=== PATIENT | female | born 1970 | race Caucasian/White ===

== ENCOUNTER 2018-11-23 14:19 | Emergency (ER) | payer OTHER ==
[2018-11-23] MEDS ORDERED: FAMOTIDINE 20 MG/2 ML VIAL IV ONE (17:32)
[2018-11-23] MEDS ORDERED: NA CHLORIDE 0.9% 1,000 ML ONE (17:32)
[2018-11-23] MEDS ORDERED: ONDANSETRON 4 MG/2 ML VIAL ONE (17:32)
[2018-11-23 17:37] LABS: Absolute Lymphocytes (CBC) 2.1 K/uL (0.7-4.9); Absolute Monocytes 0.5 K/uL (0.1-1.3); Absolute Neutrophil 6.2 K/uL (1.8-8.0); Basophils % 0.3 % (0-1.3); Eosinophils % 0.5 % (0-4.4); Hematocrit 38.8 % (36.0-45.0); Lymphocytes % 23.6 % (15.3-44.8); MPV 9.5 fL (7.6-11.3); RBC Red Blood Cell Count 4.21 M/uL (3.86-4.86)
[2018-11-23 17:49] LABS: ALT/SGPT 12 U/L (12-78); AST/SGOT 9 U/L (15-37); Albumin 3.2 g/dL (3.4-5.0); Alkaline Phosphatase 83 U/L (45-117); BUN Blood Urea Nitrogen 11 mg/dL (7-18); Bicarbonate 32 mmol/L (21-32); Bilirubin Direct < 0.1 mg/dL (0-0.2); Bilirubin Total 0.2 mg/dL (0.2-1.0); Glucose Level 110 mg/dL (74-106); Lipase 68 U/L (73-393); Potassium 3.9 mmol/L (3.5-5.1); Protein, Total 6.7 g/dL (6.4-8.2); Sodium Level 143 mmol/L (136-145)
[2018-11-23 18:27] LABS: Urine Amorphous Sediment 4+ /HPF (NONE SEEN); Urine Bacteria >50 /HPF (<20); Urine Culture Reflex Order REFLEXED
--- NOTE | 2018-11-23 19:11 | EDPHYS ---
Physician Documentation [facility] Name: Veda Espinoza Age: 48 yrs Sex: Female : 1970 Arrival Date: 11/23/2018 Time: 14:22 Bed 12 Private MD: ED Physician Lamonte Baer HPI: 11/23 16:20 This 48 yrs old Female presents to ER via Ambulatory with complaints of cp Vomiting. 16:20 The patient presents to the emergency department with nausea, that is mild, vomiting, cp that is intermittent. 16:20 Onset: The symptoms/episode began/occurred 4 day(s) ago. Associated signs and symptoms: cp Pertinent positives: dysuria, Pertinent negatives: abdominal pain, diarrhea, fever, GI bleeding. Severity of symptoms: in the emergency department the symptoms are unchanged despite home interventions. 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 - Social history:: Smoking status: Patient uses tobacco products, smokes one pack cigarettes per day. Patient uses street drugs, marijuana. - Ebola Screening: : Patient negative for fever greater than or equal to 101.5 degrees Fahrenheit, and additional compatible Ebola Virus Disease symptoms Patient denies exposure to infectious person Patient denies travel to an Ebola-affected area in the 21 days before illness onset No symptoms or risks identified at this time. ROS: 16:30 Constitutional: Positive for poor PO intake, Negative for body aches, chills, fever. cp 16:30 Eyes: Negative for injury, pain, redness, and discharge. cp 16:30 ENT: Negative for drainage from ear(s), ear pain, sore throat, difficulty swallowing, difficulty handling secretions. 16:30 Cardiovascular: Negative for chest pain, edema, palpitations. 16:30 Respiratory: Negative for cough, shortness of breath, wheezing. 16:30 Abdomen/GI: Positive for nausea, Negative for abdominal pain, diarrhea, constipation, active vomiting. 16:30 Back: Negative for radiated pain. 16:30 : Positive for urinary symptoms, Negative for vaginal bleeding, vaginal discharge. 16:30 Skin: Negative for cellulitis, rash. 16:30 Neuro: Negative for altered mental status, dizziness, headache, weakness. 16:30 All other systems are negative. Exam: 16:35 Constitutional: The patient appears in no acute distress, alert, awake, cp non-diaphoretic, non-toxic, well developed, well nourished. 16:35 Head/Face: Normocephalic, atraumatic. cp 16:35 Eyes: Periorbital structures: appear normal, Conjunctiva: normal, no exudate, no injection, Sclera: no appreciated abnormality, Lids and lashes: appear normal, bilaterally. 16:35 ENT: External ear(s): are unremarkable, Ear canal(s): are normal, clear, TM's: bulging, is not appreciated, bilaterally, dullness, bilaterally, erythema, is not appreciated, bilaterally, Nose: is normal, Mouth: Lips: moist, Oral mucosa: pink and intact, moist, Posterior pharynx: is normal, airway is patent, no erythema, no exudate. 16:35 Chest/axilla: Inspection: normal, Palpation: is normal, no crepitus, no tenderness. 16:35 Cardiovascular: Rate: normal, Rhythm: regular. 16:35 Respiratory: the patient does not display signs of respiratory distress, Respirations: normal, no use of accessory muscles, no retractions, no splinting, no tachypnea, labored breathing, is not present, Breath sounds: are clear throughout, no decreased breath sounds, no stridor, no wheezing. 16:35 Abdomen/GI: Inspection: abdomen appears normal, Palpation: abdomen is soft and non-tender, in all quadrants. 16:35 Back: CVA tenderness, is absent. 16:35 Skin: cellulitis, is not appreciated, no rash present. 16:35 Neuro: Orientation: to person, place \T\ time. Mentation: is normal, Motor: moves all fours, strength is normal, Sensation: is normal, Gait: is steady. Vital Signs: 14:34 BP 94 / 51; Pulse 75; Resp 20; Temp 97.6; Pulse Ox 95% on R/A; Weight 63.5 kg; Height 5 aj ft. 4 in. (162.56 cm); 14:34 Body Mass Index 24.03 (63.50 kg, 162.56 cm) aj MDM: 16:07 Patient medically screened. 19:10 Data reviewed: vital signs, nurses notes, lab test result(s), and as a result, I will cp discharge patient. 19:10 Counseling: I had a detailed discussion with the patient and/or guardian regarding: the cp historical points, exam findings, and any diagnostic results supporting the discharge/admit diagnosis, lab results, to return to the emergency department if symptoms worsen or persist or if there are any questions or concerns that arise at home. Response to treatment: the patient's symptoms have markedly improved after treatment, VSS. Nausea improved and patient observed tolerating po fluids. No vomiting observed in ED, and as a result, I will discharge patient. 11/23 16:13 Order name: Urine Microscopic Only; Complete Time: 18:31 cp 11/23 18:32 Interpretation: Normal except: UWBC 10-20; URBC 5-10; UBACT >50; SQEPI 5-10; AMORPH 4+. cp 11/23 17:00 Order name: Basic Metabolic Panel; Complete Time: 18:31 cp 11/23 17:00 Order name: CBC with Diff; Complete Time: 18:31 cp 11/23 17:00 Order name: Creatinine for Radiology; Complete Time: 18:31 cp 11/23 17:00 Order name: Hepatic Function; Complete Time: 18:31 cp 11/23 17:00 Order name: Lipase; Complete Time: 18:31 cp 11/23 16:13 Order name: XRAY Ribs LEFT; Complete Time: 19:14 cp 11/23 19:14 Interpretation: Report reviewed. cp 11/23 17:11 Order name: Magnesium; Complete Time: 18:31 cp 11/23 17:21 Order name: Urine Dipstick--Ancillary (enter results) ag 11/23 17:21 Order name: Urine --Ancillary (enter results) ag 11/23 18:33 Order name: Urine Culture EDMS 11/23 16:13 Order name: Urine Dipstick-Ancillary (obtain specimen); Complete Time: 17:27 cp 11/23 16:13 Order name: Urine Test (obtain specimen); Complete Time: 17:27 cp 11/23 16:46 Order name: PO challenge; Complete Time: 20:00 cp 11/23 17:00 Order name: IV Saline Lock; Complete Time: 17:12 cp 11/23 17:00 Order name: Labs collected and sent; Complete Time: 17:12 cp Administered Medications: 17:28 Not Given (Duplicate Order): Pepcid 20 mg PO once iw 17:28 Drug: NS 0.9% 1000 ml Route: IV; Rate: 1 bolus; Site: right antecubital; iw 17:28 Drug: Pepcid 20 mg Route: IVP; Site: right antecubital; iw 19:00 Follow up: Response: No adverse reaction iw 17: Not Given (Duplicate Order): Zofran 4 mg PO once iw 17: Drug: Zofran 4 mg Route: IVP; Site: right antecubital; iw 18:00 Follow up: Response: No adverse reaction iw 19:05 Drug: Rocephin - (cefTRIAXone) 1 grams Route: IVPB; Infused Over: 30 mins; Site: right iw antecubital; 19:10 Follow up: IV Status: Completed infusion iw Disposition: 11/23/18 19:11 Discharged to Home. Impression: Urinary tract infection, site not specified, Left lower rib pain, Nausea and vomiting. - Condition is Stable. - Discharge Instructions: Musculoskeletal Pain, Nausea and Vomiting, Adult, Urinary Tract Infection, Adult. - Prescriptions for Anaprox DS 550 mg Oral Tablet - take 1 tablet by ORAL route every 12 hours As needed; 20 tablet. Tylenol- Codeine #3 300-30 mg Oral Tablet - take 2 tablets by ORAL route every 6 hours As needed no driving while taking medication; 15 tablet. Zofran 4 mg Oral Tablet - take 1 tablet by ORAL route every 12 hours As needed; 20 tablet. Cyclobenzaprine 10 mg Oral Tablet - take 1 tablet by ORAL route every 8 hours As needed no driving while taking medication; 15 tablet. - Medication Reconciliation Form, Thank You Letter, Antibiotic Education, Prescription Opioid Use form. - Follow up: Private Physician; When: 2 - 3 days; Reason: Recheck today's complaints. - Problem is new. - Symptoms have improved. Addendum: 11/27/2018 08:00 Co-signature as Attending Physician, Lamonte Baer MD I agree with the assessment and c gil plan of care. Signatures: Dispatcher [employer] Qiana Clemons, RN Lamonte Rivera MD MD cha Williams, Irene, RN RN Lamonte Rachel PA PA cp Corrections: (The following items were deleted from the chart) 11/23 19:21 19:11 11/23/2018 19:11 Discharged to Home. Impression: Urinary tract infection, site iw not specified; Left lower rib pain; Nausea and vomiting. Condition is Stable. Forms are Medication Reconciliation Form, Thank You Letter, Antibiotic Education, Prescription Opioid Use. Follow up: Private Physician; When: 2 - 3 days; Reason: Recheck today's complaints. Problem is new. Symptoms have improved. cp
--- NOTE | 2018-11-23 19:11 | ER ---
Nurse's Notes [facility] Name: Veda Espinoza Age: 48 yrs Sex: Female : 1970 Arrival Date: 11/23/2018 Time: 14:22 Bed 12 Private MD: Diagnosis: Urinary tract infection, site not specified;Left lower rib pain;Nausea and vomiting Presentation: 11/23 14:29 Presenting complaint: Patient states: Vomiting x 4 days and burning with urination. aj Patient's pupils are pinpoint and not reactive to light, speech is slurred, appears drowsy. Transition of care: patient was not received from another setting of care. Onset of symptoms was November 20, 2018. Risk Assessment: Do you want to hurt yourself or someone else? Patient reports no desire to harm self or others. Initial Sepsis Screen: Does the patient meet any 2 criteria? No. Patient's initial sepsis screen is negative. Does the patient have a suspected source of infection? No. Patient's initial sepsis screen is negative. Care prior to arrival: None. 14:29 Method Of Arrival: Ambulatory 14:29 Acuity: OSMANY 3 Triage Assessment: 14:34 General: Appears in no apparent distress. comfortable, Behavior is calm, cooperative, aj drowsy. Pain: Denies pain. Neuro: Level of Consciousness is awake, alert, obeys commands, Oriented to person, place, time, situation, Appropriate for age. Respiratory: Airway is patent Respiratory effort is even, unlabored, Respiratory pattern is regular, symmetrical. GI: Reports nausea, vomiting. : Reports burning with urination. Derm: Skin is intact, is healthy with good turgor, Skin is pink, warm \T\ dry. normal. 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 - Social history:: Smoking status: Patient uses tobacco products, smokes one pack cigarettes per day. Patient uses street drugs, marijuana. - Ebola Screening: : Patient negative for fever greater than or equal to 101.5 degrees Fahrenheit, and additional compatible Ebola Virus Disease symptoms Patient denies exposure to infectious person Patient denies travel to an Ebola-affected area in the 21 days before illness onset No symptoms or risks identified at this time. Screenin:00 Abuse screen: Denies threats or abuse. Denies injuries from another. Nutritional iw screening: No deficits noted. Tuberculosis screening: No symptoms or risk factors identified. Fall Risk None identified. Assessment: 17:00 General: Appears in no apparent distress. Behavior is calm, cooperative. Pain: iw Complains of pain in head, chest, abdomen, right arm, left arm, right leg and left leg. Neuro: Level of Consciousness is awake, alert, obeys commands, Oriented to person, place, time, situation, Moves all extremities. Full function. Cardiovascular: Respiratory: Respiratory effort is even, unlabored, Respiratory pattern is regular. GI: Reports nausea, vomiting. GI: Abdomen is flat, non-distended. Derm: Skin is intact, is healthy with good turgor. Musculoskeletal: Capillary refill < 3 seconds. 18:00 Reassessment: Patient appears in no apparent distress at this time. Patient and/or iw family updated on plan of care and expected duration. Pain level reassessed. Patient is alert, oriented x 3, equal unlabored respirations, skin warm/dry/pink. Vital Signs: 14:34 BP 94 / 51; Pulse 75; Resp 20; Temp 97.6; Pulse Ox 95% on R/A; Weight 63.5 kg; Height 5 aj ft. 4 in. (162.56 cm); 14:34 Body Mass Index 24.03 (63.50 kg, 162.56 cm) aj ED Course: 14:22 Patient arrived in ED. rg4 14:32 Triage completed. aj 14:34 Arm band placed on left wrist. Patient placed in waiting room, Patient notified of wait aj time. 16:06 Lamonte Montenegro PA is PHCP. cp 16:06 Lamonte Baer MD is Attending Physician. cp 16:07 Clarissa Harmon, JOSAFAT is Primary Nurse. iw 17:00 Patient has correct armband on for positive identification. iw 17:10 Initial lab(s) drawn, by pa, sent to lab. Urine collected: clean catch specimen, 5 cloudy. Inserted saline lock: 22 gauge in right antecubital area, using aseptic technique. Blood collected. 17:27 Urine --Ancillary (enter results) Sent. mh5 17:27 Urine Dipstick--Ancillary (enter results) Sent. 5 17:27 Magnesium Sent. 5 17:27 Basic Metabolic Panel Sent. [facility] 17:27 CBC with Diff Sent. 5 17:27 Creatinine for Radiology Sent. 5 17:27 Hepatic Function Sent. 5 17:27 Lipase Sent. 5 17:27 Urine Microscopic Only Sent. 5 18:10 XRAY Ribs LEFT In Process Unspecified. EDMS 19:20 No provider procedures requiring assistance completed. IV discontinued, intact, iw bleeding controlled, No redness/swelling at site. Pressure dressing applied. Administered Medications: 17:28 Not Given (Duplicate Order): Pepcid 20 mg PO once iw 17:28 Drug: NS 0.9% 1000 ml Route: IV; Rate: 1 bolus; Site: right antecubital; iw 17:28 Drug: Pepcid 20 mg Route: IVP; Site: right antecubital; iw 19:00 Follow up: Response: No adverse reaction iw 17:29 Not Given (Duplicate Order): Zofran 4 mg PO once iw 17:29 Drug: Zofran 4 mg Route: IVP; Site: right antecubital; iw 18:00 Follow up: Response: No adverse reaction iw 19:05 Drug: Rocephin - (cefTRIAXone) 1 grams Route: IVPB; Infused Over: 30 mins; Site: right iw antecubital; 19:10 Follow up: IV Status: Completed infusion Outcome: 19:11 Discharge ordered by . cp 19:20 Discharged to home ambulatory, with family. iw 19:20 Condition: good 19:20 Discharge instructions given to patient, family, Instructed on discharge instructions, follow up and referral plans. medication usage, Demonstrated understanding of instructions, follow-up care, medications, Prescriptions given X 4. 19:21 Patient left the ED. iw Addendum: 11/27/2018 09:52 Addendum: Culture Results: Positive urine culture. Patient was not prescribed a a5 antibiotics at discharge. Report given to SRIKANTH for further evaluation and then to public welfare director for follow up with patient. Phone call Attempt #[phone]. Left a voice mail. Signatures: Dispatcher [employer] Qiana Clemons RN RN aj Williams, Irene, RN RN Radha Mcgraw RN RN aa5 Lamonte Montenegro PA PA cp Garcia, Rubi rg4 Cindy Riddle 5 Corrections: (The following items were deleted from the chart) 09:53 09:52 Addendum: Culture Results: Positive urine culture. Patient was not prescribed aa5 antibiotics at discharge. Report given to SRIKANTH for further evaluation and then to public welfare director for follow up with patient. Phone call Attempt #[phone]
--- NOTE | 2018-11-23 19:12 | RAD REPORT ---
EXAM DESCRIPTION: RAD - Ribs Left - 11/23/2018 6:16 pm CLINICAL HISTORY: Left rib pain FINDINGS: No acute fracture is seen
[2018-11-23] MEDS ORDERED: CEFTRIAXONE/SWI 1gm 1 GM/10 ML SYR ONE (19:17)
[2018-11-23 20:08] LABS: Urine Blood TRACE (NEG); Urine Glucose NEGATIVE (NEG); Urine Protein 2+ (NEG); Urine Specific Gravity 1.015 (1.005-1.030); Urine pH 8.5 (5.0-7.0)
== END 2018-11-23 19:21 | disposition home or self-care (01) ==
LOC: ER 14:19
DX: N39.0 Urinary tract infection, site not specified (principal); R07.81 Pleurodynia; F17.210 Nicotine dependence, cigarettes, uncomplicated; F31.9 Bipolar disorder, unspecified; F90.9 Attention-deficit hyperactivity disorder, unspecified type; Z88.1 Allergy status to other antibiotic agents; Z88.8 Allergy status to other drugs, medicaments and biological substances
CPT/HCPCS: 36415; 71100; 80048; 80076; 81025; 83690; 83735; 85025; 87077; 87086; 87088; 87186; 96374; 96375; 99284; J0696; J2405; J7030; 81003; 81015

== ENCOUNTER 2019-01-10 22:34 | Emergency (ER) | payer OTHER ==
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
--- NOTE | 2019-01-10 23:45 | ER ---
Nurse's Notes [facility] Name: Veda Espinoza Age: 48 yrs Sex: Female : 1970 Arrival Date: 01/10/2019 Time: 22:35 Bed 20 Private MD: Magdy Hernandez Diagnosis: Contusion of right hand Presentation: 01/10 22:36 Presenting complaint: Patient states: I punched a wall and I think I broke my hand. ed1 Transition of care: patient was not received from another setting of care. Onset of symptoms was January 10, 2019. Risk Assessment: Do you want to hurt yourself or someone else? Patient reports no desire to harm self or others. Initial Sepsis Screen: Does the patient meet any 2 criteria? No. Patient's initial sepsis screen is negative. Does the patient have a suspected source of infection? No. Patient's initial sepsis screen is negative. Care prior to arrival: None. 22:36 Method Of Arrival: Ambulatory ed1 22:36 Acuity: OSMANY 3 ed1 Triage Assessment: 22:39 General: Appears uncomfortable, Behavior is calm, cooperative. Pain: Complains of pain ed1 in right hand Pain currently is 9 out of 10 on a pain scale. Musculoskeletal: Circulation, motion, and sensation intact. Injury Description: pt punched wall. 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 - Social history:: Smoking status: Patient uses tobacco products, smokes one pack cigarettes per day. - Ebola Screening: : Patient negative for fever greater than or equal to 101.5 degrees Fahrenheit, and additional compatible Ebola Virus Disease symptoms Patient denies exposure to infectious person Patient denies travel to an Ebola-affected area in the 21 days before illness onset No symptoms or risks identified at this time. Screenin:45 Abuse screen: Denies threats or abuse. Nutritional screening: No deficits noted. jb4 Tuberculosis screening: No symptoms or risk factors identified. Fall Risk None identified. Assessment: 22:45 General: Appears in no apparent distress. uncomfortable, Behavior is calm, cooperative, jb4 appropriate for age. Pain: Complains of pain in dorsal aspect of proximal phalanx of right little finger Pain does not radiate. Pain currently is 9 out of 10 on a pain scale. Quality of pain is described as throbbing, Pain began 30 min ago. Is continuous. Neuro: Level of Consciousness is awake, alert, obeys commands, Oriented to person, place, time, situation. Cardiovascular: Patient's skin is warm and dry. Respiratory: Airway is patent Respiratory effort is even, unlabored, Respiratory pattern is regular, symmetrical. GI: No signs and/or symptoms were reported involving the gastrointestinal system. : No signs and/or symptoms were reported regarding the genitourinary system. EENT: No signs and/or symptoms were reported regarding the EENT system. Derm: Skin is intact, Skin is pink, warm \T\ dry. Musculoskeletal: Circulation, motion, and sensation intact. Swelling present in dorsal aspect of middle phalanx of right little finger and dorsal aspect of proximal phalanx of right little finger. 01/11 00:00 Reassessment: Patient appears in no apparent distress at this time. Patient and/or jb4 family updated on plan of care and expected duration. Pain level reassessed. Patient is alert, oriented x 3, equal unlabored respirations, skin warm/dry/pink. Vital Signs: 02 22:39 BP 154 / 106; Pulse 93; Resp 20; Temp 99(O); Pulse Ox 98% ; Weight 58.97 kg; Height 5 ed1 ft. 4 in. (162.56 cm); Pain 9/10; 23:45 BP 102 / 59; Pulse 74; Resp 16; Pulse Ox 98% on R/A; jb4 22:39 Body Mass Index 22.31 (58.97 kg, 162.56 cm) ed1 ED Course: 22:35 Patient arrived in ED. as 22:35 Magdy Hernandez DO is Private Physician. as 22:37 Triage completed. ed1 22:39 Arm band placed on left wrist. ed1 22:42 Binh Kim MD is Attending Physician. gs 22:45 Patient has correct armband on for positive identification. Bed in low position. Call jb4 light in reach. Side rails up X 1. Pulse ox on. NIBP on. 22:50 Chris Jarvis RN is Primary Nurse. jb4 22:52 X-ray completed. Portable x-ray completed in exam room. Patient tolerated procedure ag1 well. 23:45 No provider procedures requiring assistance completed. Patient did not have IV access jb4 during this emergency room visit. 01/11 02:46 Hand Right 3 View XRAY In Process Unspecified. EDMS Administered Medications: 00:03 Drug: Ibuprofen 600 mg Route: PO; jb4 00:05 Follow up: Response: No adverse reaction jb4 Outcome: 01/10 23:44 Discharge ordered by . 01/11 00:06 Discharged to home ambulatory, with significant other. jb4 Condition: stable Discharge instructions given to patient, significant other, Instructed on discharge instructions, follow up and referral plans. medication usage, Demonstrated understanding of instructions, follow-up care, medications, Prescriptions given X 1. 00:06 Patient left the ED. jb4 Signatures: Dispatcher [employer] EDMS Tatiana Riddle Erika, RN RN ed1 Martha Dorsey ag1 Chris Jarvis RN RN jb4 Binh Kim MD MD Corrections: (The following items were deleted from the chart) 01/10 23:12 22:30 General: Appears in no apparent distress. uncomfortable, Behavior is calm, jb4 cooperative, appropriate for age, jb4 23:12 22:30 Pain: Complains of pain in dorsal aspect of proximal phalanx of right little jb4 finger Pain does not radiate. Pain currently is 9 out of 10 on a pain scale. Quality of pain is described as throbbing, Pain began 30 min ago. Is continuous, jb4 23:12 22:30 Neuro: Level of Consciousness is awake, alert, obeys commands, Oriented to jb4 person, place, time, situation, jb4 23:12 22:30 Cardiovascular: Patient's skin is warm and dry. jb4 jb4 23:12 22:30 Respiratory: Airway is patent Respiratory effort is even, unlabored, Respiratory jb4 pattern is regular, symmetrical, jb4 :11 09:30 GI: No signs and/or symptoms were reported involving the gastrointestinal system. jb4 jb4 : : No signs and/or symptoms were reported regarding the genitourinary system. [id number] :11 09:30 EENT: No signs and/or symptoms were reported regarding the EENT system. jb4 jb4 :30 Derm: Skin is intact, Skin is pink, warm \T\ dry. jb4 jb4 :30 Musculoskeletal: Circulation, motion, and sensation intact. Swelling present in jb4 dorsal aspect of middle phalanx of right little finger and dorsal aspect of proximal phalanx of right little finger jb4
[2019-01-11] MEDS ORDERED: IBUPROFEN 200 MG TAB PO ONE (00:10)
--- NOTE | 2019-01-11 10:53 | RAD REPORT ---
EXAM DESCRIPTION: RAD - Hand Right 3 View - 01/10/2019 10:59 pm CLINICAL HISTORY: PAIN Trauma, pain COMPARISON: No comparisons FINDINGS: No acute fracture or dislocation is seen.
== END 2019-01-11 00:06 | disposition home or self-care (01) ==
LOC: ER 22:34
DX: S60.221A Contusion of right hand, initial encounter (principal); W50.0XXA Accidental hit or strike by another person, initial encounter; F90.9 Attention-deficit hyperactivity disorder, unspecified type; F31.9 Bipolar disorder, unspecified; Z88.5 Allergy status to narcotic agent; Z88.0 Allergy status to penicillin
CPT/HCPCS: 99284

== ENCOUNTER 2019-01-17 11:28 | Emergency (ER) | payer MEDICARE, OTHER ==
[2019-01-17] MEDS ORDERED: ONDANSETRON 4 MG (ODT) TAB ONE (12:00)
[2019-01-17] MEDS ORDERED: KETOROLAC 30 MG/ML INJ ONE (12:00)
[2019-01-17] MEDS ORDERED: HYDROCODONE/APAP 10/325 TAB ONE (12:48)
--- NOTE | 2019-01-17 13:34 | ER ---
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 Transition of care: patient was not received from another setting of care. Onset of symptoms was January 17, 2019. Risk Assessment: Do you want to hurt yourself or someone else? Patient reports no desire to harm self or others. Initial Sepsis Screen: Does the patient meet any 2 criteria? No. Patient's initial sepsis screen is negative. Does the patient have a suspected source of infection? No. Patient's initial sepsis screen is negative. Care prior to arrival: None. 11:34 Method Of Arrival: Ambulatory 11:34 Acuity: OSMANY 4 Triage Assessment: 11:36 General: Appears in no apparent distress. uncomfortable, Behavior is calm, cooperative, hj appropriate for age. Pain: Complains of pain in back. 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 - Social history:: Smoking status: Patient uses tobacco products, Patient/guardian denies using alcohol. - Ebola Screening: : Patient negative for fever greater than or equal to 101.5 degrees Fahrenheit, and additional compatible Ebola Virus Disease symptoms Patient denies exposure to infectious person Patient denies travel to an Ebola-affected area in the 21 days before illness onset. Screenin:36 Abuse screen: Denies threats or abuse. Denies injuries from another. Nutritional hj screening: No deficits noted. Tuberculosis screening: No symptoms or risk factors identified. Fall Risk None identified. Assessment: 11:50 General: Appears in no apparent distress. uncomfortable, Behavior is calm, cooperative. em Pain: Complains of pain in thoracic area Pain currently is 9 out of 10 on a pain scale. Quality of pain is described as sharp, Pain began 2-3 days ago. Neuro: Level of Consciousness is awake, alert, obeys commands, Oriented to person, place, time, situation, Moves all extremities. Gait is steady, Speech is normal, Intact. Cardiovascular: Capillary refill < 3 seconds Patient's skin is warm and dry. Respiratory: Airway is patent Respiratory effort is even, unlabored, Respiratory pattern is regular, symmetrical. GI: Abdomen is flat, Reports nausea, Patient currently denies vomiting. : No signs and/or symptoms were reported regarding the genitourinary system. Derm: Skin is intact, is healthy with good turgor, Skin is pink, warm \T\ dry. Musculoskeletal: Capillary refill < 3 seconds, Range of motion: intact in all extremities. 12:20 Reassessment: Patient appears in no apparent distress at this time. reports pain em medication has not helped, provider notified, new medication orders received. 13:30 Reassessment: Patient appears in no apparent distress at this time. Patient and/or em family updated on plan of care and expected duration. Pain level reassessed. Patient is alert, oriented x 3, equal unlabored respirations, skin warm/dry/pink. reports pain is 4/10 Patient states feeling better. Vital Signs: 11:37 BP 100 / 53; Pulse 62; Resp 18; Temp 97.47(O); Pulse Ox 99% on R/A; Weight 63.5 kg; hj Height 5 ft. 4 in. (162.56 cm); Pain 10/10; 11:50 BP 102 / 50; Pulse 86; Resp 18; Pulse Ox 98% on R/A; Pain 9/10; em 13:30 BP 107 / 55; Pulse 75; Resp 18; Pulse Ox 99% on R/A; em 11:37 Body Mass Index 24.03 (63.50 kg, 162.56 cm) ED Course: 11:31 Patient arrived in ED. mr 11:32 None, None is Private Physician. mr 11:35 Triage completed. hj 11:35 Simone Jon MD is Attending Physician. kdr 11:36 Arm band placed on right wrist. hj 11:39 Patient has correct armband on for positive identification. Bed in low position. Call hj light in reach. Side rails up X 1. 11:54 Octavio Lugo LVN is Primary Nurse. em 14:01 No provider procedures requiring assistance completed. Patient did not have IV access em during this emergency room visit. Administered Medications: 11:54 Drug: Zofran 4 mg Route: PO; em 12:42 Follow up: Response: No adverse reaction; Nausea is decreased em 11:54 Drug: TORadol 60 mg Route: IM; Site: left gluteus; em 12:41 Follow up: Response: No adverse reaction; Pain is unchanged, physician notified em 12:42 Drug: [place] 10 mg-325 mg 1 tabs Route: PO; em 13:30 Follow up: Response: No adverse reaction; Pain is decreased em Outcome: 13:33 Discharge ordered by . kdr 14:01 Discharged to home ambulatory, with family. em 14:01 Condition: good 14:01 Discharge instructions given to patient, family, Instructed on discharge instructions, follow up and referral plans. no drinking with medication, no driving heavy equipment, medication usage, Demonstrated understanding of instructions, follow-up care, medications, Prescriptions given X 3. 14:02 Patient left the ED. em Signatures: Simone Jon MD MD kdr Nohelia Henson mr Octavio Lugo LVN LVN em Raciel Sawyer, RN RN
--- NOTE | 2019-01-17 13:34 | EDPHYS ---
Physician Documentation [facility] Name: Veda Espinoza Age: 48 yrs Sex: Female : 1970 Arrival Date: 01/17/2019 Time: 11:31 Bed 16 Private MD: None, None ED Physician Simone Jon HPI: 01/17 13:40 This 48 yrs old Female presents to ER via Ambulatory with complaints of Back kdr Pain. 13:40 The patient presents with pain that is acute, with no known mechanism of injury, that kdr is chronic, with no known mechanism of injury. The symptoms are located in the thoracic area. Onset: The symptoms/episode began/occurred gradually, 3 day(s) ago. The pain does not radiate. Associated signs and symptoms: The patient has no apparent associated signs or symptoms. The problem was sustained without known cause, from unknown cause. Modifying factors: The patient symptoms are alleviated by remaining still, the patient symptoms are aggravated by any movement. Severity of symptoms: At their worst the symptoms were moderate, in the emergency department the symptoms are unchanged. The patient has experienced similar episodes in the past, multiple times, chronically, but today's symptoms are worse, more painful. The patient has not recently seen a physician. 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 - Social history:: Smoking status: Patient uses tobacco products, Patient/guardian denies using alcohol. - Ebola Screening: : Patient negative for fever greater than or equal to 101.5 degrees Fahrenheit, and additional compatible Ebola Virus Disease symptoms Patient denies exposure to infectious person Patient denies travel to an Ebola-affected area in the 21 days before illness onset. ROS: 13:40 Constitutional: Negative for fever, chills, and weight loss, Eyes: Negative for injury, kdr pain, redness, and discharge, ENT: Negative for injury, pain, and discharge, Neck: Negative for injury, pain, and swelling, Cardiovascular: Negative for chest pain, palpitations, and edema, Respiratory: Negative for shortness of breath, cough, wheezing, and pleuritic chest pain, Abdomen/GI: Negative for abdominal pain, nausea, vomiting, diarrhea, and constipation, : Negative for injury, bleeding, discharge, and swelling, MS/Extremity: Negative for injury and deformity, Skin: Negative for injury, rash, and discoloration, Neuro: Negative for headache, weakness, numbness, tingling, and seizure activity. Psych: Negative for depression, anxiety, suicide ideation, homicidal ideation, and hallucinations, Allergy/Immunology: Negative for hives, rash, and allergies, Endocrine: Negative for neck swelling, polydipsia, polyuria, polyphagia, and marked weight changes, Hematologic/Lymphatic: Negative for swollen nodes, abnormal bleeding, and unusual bruising. 13:40 Back: Positive for pain with movement, Negative for injury or acute deformity, decreased range of motion, pain at rest, radiated pain, acute changes. Exam: 13:40 Constitutional: This is a well developed, well nourished patient who is awake, alert, kdr and in no acute distress. Head/Face: Normocephalic, atraumatic. Eyes: Pupils equal round and reactive to light, extra-ocular motions intact. Lids and lashes normal. Conjunctiva and sclera are non-icteric and not injected. Cornea within normal limits. Periorbital areas with no swelling, redness, or edema. Neck: Trachea midline, no thyromegaly or masses palpated, and no cervical lymphadenopathy. Supple, full range of motion without nuchal rigidity, or vertebral point tenderness. No Meningismus. Chest/axilla: Normal chest wall appearance and motion. Nontender with no deformity. No lesions are appreciated. Cardiovascular: Regular rate and rhythm with a normal S1 and S2. No gallops, murmurs, or rubs. Normal PMI, no JVD. No pulse deficits. Respiratory: Lungs have equal breath sounds bilaterally, clear to auscultation and percussion. No rales, rhonchi or wheezes noted. No increased work of breathing, no retractions or nasal flaring. Abdomen/GI: Soft, non-tender, with normal bowel sounds. No distension or tympany. No guarding or rebound. No evidence of tenderness throughout. Skin: Warm, dry with normal turgor. Normal color with no rashes, no lesions, and no evidence of cellulitis. MS/ Extremity: Pulses equal, no cyanosis. Neurovascular intact. Full, normal range of motion. Neuro: Awake and alert, GCS 15, oriented to person, place, time, and situation. Cranial nerves II-XII grossly intact. Motor strength 5/5 in all extremities. Sensory grossly intact. Cerebellar exam normal. Normal gait. Psych: Awake, alert, with orientation to person, place and time. Behavior, mood, and affect are within normal limits. 13:40 Back: pain, that is mild, that is moderate, of the thoracic area, ROM is painful, normal spinal alignment noted, CVA tenderness, is absent, vertebral tenderness, is appreciated at T1, T2, T3, T4, T5, T6, T7 and T8. Vital Signs: 11:37 BP 100 / 53; Pulse 62; Resp 18; Temp 97.47(O); Pulse Ox 99% on R/A; Weight 63.5 kg; hj Height 5 ft. 4 in. (162.56 cm); Pain 10/10; 11:50 BP 102 / 50; Pulse 86; Resp 18; Pulse Ox 98% on R/A; Pain 9/10; em 13:30 BP 107 / 55; Pulse 75; Resp 18; Pulse Ox 99% on R/A; em 11:37 Body Mass Index 24.03 (63.50 kg, 162.56 cm) hj MDM: 13:33 Patient medically screened. kdr 13:40 Data reviewed: vital signs, nurses notes, lab test result(s). Counseling: I had a kdr detailed discussion with the patient and/or guardian regarding: the historical points, exam findings, and any diagnostic results supporting the discharge/admit diagnosis, the need for outpatient follow up. Administered Medications: 11:54 Drug: Zofran 4 mg Route: PO; em 12:42 Follow up: Response: No adverse reaction; Nausea is decreased em 11:54 Drug: TORadol 60 mg Route: IM; Site: left gluteus; em 12:41 Follow up: Response: No adverse reaction; Pain is unchanged, physician notified em 12:42 Drug: [place] 10 mg-325 mg 1 tabs Route: PO; em 13:30 Follow up: Response: No adverse reaction; Pain is decreased em Disposition: 01/17/19 13:33 Discharged to Home. Impression: Upper back pain - acute exacerbation of chronic. - Condition is Stable. - Discharge Instructions: Chronic Back Pain, Back Pain, Adult, [id number]. - Prescriptions for Tylenol- Codeine #3 300-30 mg Oral Tablet - take 2 tablets by ORAL route every 6 hours As needed; 12 tablet. Cyclobenzaprine 10 mg Oral Tablet - take 1 tablet by ORAL route every 8 hours As needed; 16 tablet. Medrol (Magdiel) 4 mg Oral Tablets, Dose Pack - take 1 tablet by ORAL route as directed - follow package instructions; 1 packet. - Medication Reconciliation Form, Thank You Letter, Prescription Opioid Use form. - Follow up: Private Physician; When: 2 - 3 days; Reason: If symptoms return, Further diagnostic work-up, Recheck today's complaints, Continuance of care, Re-evaluation by your physician. - Problem is an acute exacerbation. - Symptoms have improved. Signatures: Simone Jon MD MD [facility] Octavio Lugo, LIME HIDE INSPECTOR LIME HIDE INSPECTOR em Raciel Sawyer RN RN hj Corrections: (The following items were deleted from the chart) 14:02 13:33 01/17/2019 13:33 Discharged to Home. Impression: Upper back pain - acute em exacerbation of chronic. Condition is Stable. Forms are Medication Reconciliation Form, Thank You Letter, Antibiotic Education, Prescription Opioid Use. Follow up: Private Physician; When: 2 - 3 days; Reason: If symptoms return, Further diagnostic work-up, Recheck today's complaints, Continuance of care, Re-evaluation by your physician. Problem is an acute exacerbation. Symptoms have improved. kdr
== END 2019-01-17 14:02 | disposition home or self-care (01) ==
LOC: ER 11:28
DX: G89.29 Other chronic pain (principal); F31.9 Bipolar disorder, unspecified; F90.9 Attention-deficit hyperactivity disorder, unspecified type; Z72.0 Tobacco use; Z88.1 Allergy status to other antibiotic agents; Z88.8 Allergy status to other drugs, medicaments and biological substances
CPT/HCPCS: 96372; 99283

== ENCOUNTER 2019-01-22 20:00 | Emergency (ER) | payer MEDICARE ==
[2019-01-22] MEDS ORDERED: KETOROLAC 30 MG/ML INJ ONE (22:38)
[2019-01-22] MEDS ORDERED: DEXAMETHASONE 4 MG/ML VIAL ONE (22:38)
--- NOTE | 2019-01-22 23:08 | ER ---
Nurse's Notes [facility] Name: Veda Espinoza Age: 48 yrs Sex: Female : 1970 Arrival Date: 01/22/2019 Time: 20:02 Bed 6 Private MD: Diagnosis: right rib pain Presentation: 01/22 20:28 Presenting complaint: Patient states: right upper rib cage pain for 2 months, getting tl2 worse. Hurts to breathe or cough. Denies any congestion or chronic coughing, no fever. Has been taking ibuprofen for inflammation but is not helping. Transition of care: patient was not received from another setting of care. Onset of symptoms was November 2018. Risk Assessment: Do you want to hurt yourself or someone else? Patient reports no desire to harm self or others. Initial Sepsis Screen: Does the patient meet any 2 criteria? No. Patient's initial sepsis screen is negative. Does the patient have a suspected source of infection? No. Patient's initial sepsis screen is negative. Care prior to arrival: None. 20:28 Method Of Arrival: Ambulatory tl2 20:28 Acuity: OSMANY 4 tl2 Triage Assessment: 20:31 General: Appears in no apparent distress. uncomfortable, Behavior is calm, cooperative, tl2 appropriate for age. Pain: Complains of pain in right lateral anterior chest Pain radiates to right subscapular area Pain currently is 9 out of 10 on a pain scale. Pain: Aggravated by increased activity, deep breathing. Neuro: Level of Consciousness is awake, alert, obeys commands, Oriented to person, place, time, situation. Cardiovascular: Denies chest pain. Respiratory: Reports pain with respiration Airway is patent Respiratory effort is even, unlabored, Respiratory pattern is regular, symmetrical, Breath sounds are clear bilaterally. Denies cough, shortness of breath. GI: No signs and/or symptoms were reported involving the gastrointestinal system. : No signs and/or symptoms were reported regarding the genitourinary system. Derm: Skin is pink, warm \T\ dry. 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 - Social history:: Smoking status: Patient uses tobacco products, smokes one-half pack cigarettes per day. - Ebola Screening: : No symptoms or risks identified at this time. Screenin:34 Abuse screen: Denies threats or abuse. Nutritional screening: No deficits noted. tl2 Tuberculosis screening: No symptoms or risk factors identified. Fall Risk None identified. Assessment: 20:31 General: see triage assessment. tl2 21:48 Reassessment: Patient appears in no apparent distress at this time. Patient and/or tl2 family updated on plan of care and expected duration. Pain level reassessed. Patient is alert, oriented x 3, equal unlabored respirations, skin warm/dry/pink. awaiting MD assessment. 21:48 GI: tl2 22:15 Reassessment: Patient appears in no apparent distress at this time. No changes from rr5 previously documented assessment. Patient is alert, oriented x 3, equal unlabored respirations, skin warm/dry/pink. 23:21 Reassessment: Patient appears in no apparent distress at this time. Patient is alert, rr5 oriented x 3, equal unlabored respirations, skin warm/dry/pink. discharged instruction given and explained without complaints made. Patient states symptoms have improved. Vital Signs: 20:31 BP 110 / 45; Pulse 83; Resp 18; Temp 98.1(O); Pulse Ox 98% on R/A; Weight 63.5 kg; tl2 Height 5 ft. 4 in. (162.56 cm); Pain 9/10; 21:30 BP 94 / 48; Pulse 73; Resp 19; Pulse Ox 100% ; rr5 22:30 BP 115 / 61; Pulse 70; Resp 18; Pulse Ox 100% ; rr5 23:20 BP 125 / 60; Pulse 80; Resp 16; Pulse Ox 99% ; rr5 20:31 Body Mass Index 24.03 (63.50 kg, 162.56 cm) tl2 ED Course: 20:02 Patient arrived in ED. ag3 20:29 Triage completed. tl2 20:31 Arm band placed on right wrist. tl2 20:34 Patient has correct armband on for positive identification. Placed in gown. Bed in low tl2 position. Call light in reach. Side rails up X 1. 21:40 Noam Mayo MD is Attending Physician. ps1 21:46 Felipa Graham, RN is Primary Nurse. tl2 22:24 Chest Pa And Lat (2 Views) XRAY In Process Unspecified. EDMS 23:22 No provider procedures requiring assistance completed. Patient did not have IV access rr5 during this emergency room visit. Administered Medications: 22:45 Drug: TORadol 30 mg Route: IM; Site: left gluteus; tl2 23:20 Follow up: Response: No adverse reaction rr5 22:45 Drug: Decadron - Dexamethasone 10 mg {Note: given PO in juice.} Route: IVP; Site: Other;tl2 23:20 Follow up: Response: No adverse reaction rr5 Outcome: 23:08 Discharge ordered by MD. ps1 23:22 Discharged to home ambulatory, with family. rr5 23:22 Condition: stable 23:22 Discharge instructions given to patient, Instructed on discharge instructions, follow up and referral plans. medication usage, Demonstrated understanding of instructions, follow-up care, medications, Prescriptions given X 1. 23:24 Patient left the ED. rr5 Signatures: Dispatcher [employer] EDMS Felipa Graham, RN RN tl2 Noam Mayo MD MD ps1 Mercedes Brewer Raymond RN RN rr5 Corrections: (The following items were deleted from the chart) 21:46 20:31 Respiratory: Reports pain with respiration Airway is patent Respiratory effort is tl2 even, unlabored, Respiratory pattern is regular, symmetrical, Denies cough, shortness of breath tl2 21:47 21:47 General: see triage assessment. tl2 tl2
--- NOTE | 2019-01-22 23:09 | EDPHYS ---
Physician Documentation [facility] Name: Veda Espinoza Age: 48 yrs Sex: Female : 1970 Arrival Date: 01/22/2019 Time: 20:02 Bed 6 Private MD: ED Physician Noam Mayo HPI: 01/22 22:48 This 48 yrs old Female presents to ER via Ambulatory with complaints of right ps1 rib pain. 22:48 Patient is presenting with atraumatic right rib pain that has been going on for months. ps1 She moved from [place] and has not sought medical attention for this since then. States that it hurts worse with coughing and she is a smoker. Seen on the first for chronic back pain. She is post surgical for back, this is a chronic condition. She was rx'd T3 for the pain in which she did not attest to during history. States that she has been taking 1200 mg of Motrin every 4 hours which she attested to knowing this was too much and I agreed with the patient. . [employer]: 20:31 LMP N/A - Hysterectomy tl2 Historical: - Allergies: 20:31 Augmentin; tl2 20:31 Fentanyl; tl2 - Home Meds: 20:31 Adderall XR Oral [Active]; diazepam Oral [Active]; imotrigine [Active]; Risperdal Oral tl2 [Active]; venlafaxine Oral [Active]; - PMHx: 20:31 ADD/ADHD; Bipolar disorder; Degenerative disc disease; tl2 - PSHx: 20:31 Hysterectomy; Appendectomy; Tonsillectomy; tl2 - Immunization history:: Adult Immunizations up to date. - Social history:: Smoking status: Patient uses tobacco products, smokes one-half pack cigarettes per day. - Ebola Screening: : No symptoms or risks identified at this time. ROS: 22:50 Constitutional: Negative for fever, chills, and weight loss, Eyes: Negative for injury, ps1 pain, redness, and discharge, Cardiovascular: Negative for chest pain, palpitations, and edema, Abdomen/GI: Negative for abdominal pain, nausea, vomiting, diarrhea, and constipation, Back: Negative for injury and pain, Skin: Negative for injury, rash, and discoloration, Neuro: Negative for headache, weakness, numbness, tingling, and seizure. 22:50 Respiratory: Positive for cough. 22:50 MS/extremity: Positive for pain, of the right lateral anterior chest. Exam: 22:55 Constitutional: This is a well developed, well nourished patient who is awake, alert, ps1 and in no acute distress. Head/Face: Normocephalic, atraumatic. Cardiovascular: Regular rate and rhythm. No gallops, murmurs, or rubs. Normal PMI, no JVD. No pulse deficits. Respiratory: Lungs have equal breath sounds bilaterally, clear to auscultation and percussion. No rales, rhonchi or wheezes noted. No increased work of breathing, no retractions or nasal flaring. Abdomen/GI: Soft, non-tender, with normal bowel sounds. No distension or tympany. No guarding or rebound. No evidence of tenderness throughout. Skin: Warm, dry with normal turgor. Normal color with no rashes, no lesions, and no evidence of cellulitis. MS/ Extremity: Pulses equal, no cyanosis. Neurovascular intact. Full, normal range of motion. Neuro: Awake and alert, GCS 15, oriented to person, place, time, and situation. Cranial nerves II-XII grossly intact. Sensory grossly intact. 22:55 Chest/axilla: Inspection: normal, Palpation: tenderness, that is moderate, of the right lateral anterior chest, that totally reproduces the patient's complaints. Vital Signs: 20:31 BP 110 / 45; Pulse 83; Resp 18; Temp 98.1(O); Pulse Ox 98% on R/A; Weight 63.5 kg; tl2 Height 5 ft. 4 in. (162.56 cm); Pain 9/10; 21:30 BP 94 / 48; Pulse 73; Resp 19; Pulse Ox 100% ; rr5 22:30 BP 115 / 61; Pulse 70; Resp 18; Pulse Ox 100% ; rr5 23:20 BP 125 / 60; Pulse 80; Resp 16; Pulse Ox 99% ; rr5 20:31 Body Mass Index 24.03 (63.50 kg, 162.56 cm) tl2 MDM: 22:44 Patient medically screened. ps1 01/22 21:56 Order name: Chest Pa And Lat (2 Views) XRAY tl2 Administered Medications: 22:45 Drug: TORadol 30 mg Route: IM; Site: left gluteus; tl2 23:20 Follow up: Response: No adverse reaction rr5 22:45 Drug: Decadron - Dexamethasone 10 mg {Note: given PO in juice.} Route: IVP; Site: Other;tl2 23:20 Follow up: Response: No adverse reaction rr5 Disposition: 01/22/19 23:08 Discharged to Home. Impression: right rib pain. - Condition is Stable. - Discharge Instructions: Rib Contusion. - Prescriptions for Medrol (Magdiel) 4 mg Oral Tablets, Dose Pack - take 1 tablet by ORAL route as directed - follow package instructions; 1 packet. - Medication Reconciliation Form, Thank You Letter, Antibiotic Education, Prescription Opioid Use form. - Follow up: Private Physician; When: As needed; Reason: Recheck today's complaints, Continuance of care, Re-evaluation by your physician. Follow up: Emergency Department; When: As needed; Reason: Fever > 102 F, Trouble breathing, Worsening of condition. - Problem is chronic. - Symptoms are unchanged. Signatures: Dispatcher [employer] EDFelipa Woodall RN RN tl2 Noam Mayo MD MD ps1 Cade Portillo RN RN rr5 Corrections: (The following items were deleted from the chart) 22:55 22:48 Patient is presenting with atraumatic right rib pain that has been going on for ps1 months. She moved. ps1 23:24 23:08 01/22/2019 23:08 Discharged to Home. Impression: right rib pain. Condition is rr5 Stable. Forms are Medication Reconciliation Form, Thank You Letter, Antibiotic Education, Prescription Opioid Use. Follow up: Private Physician; When: As needed; Reason: Recheck today's complaints, Continuance of care, Re-evaluation by your physician. Follow up: Emergency Department; When: As needed; Reason: Fever > 102 F, Trouble breathing, Worsening of condition. Problem is chronic. Symptoms are unchanged. ps1
--- NOTE | 2019-01-23 08:16 | RAD REPORT ---
EXAM DESCRIPTION: RAD - Chest Pa And Lat (2 Views) - 01/22/2019 10:24 pm CLINICAL HISTORY: Chest pain, right-sided rib cage pain COMPARISON: Left rib series November 23, 2018. TECHNIQUE: PA and lateral views of the chest were obtained. FINDINGS: The lungs are clear of a peripheral mass, consolidation or infiltrate. Interstitial markin gs are mildly prominent believed to be baseline. Pattern is similar to the lung markings from the rib films November 23, 2018. The anterolateral aspects of the right sixth and seventh ribs show subacute fracture change. There is callus formation present. Fracture lines are still evident. No pathologic b one process seen. Heart size is normal and central vasculature is within normal limits. No pleural e ffusion or pneumothorax seen. No aortic abnormality. Right-sided spinal fusion hardware spans T7 -T 10. IMPRESSION: Subacute fractures of the right anterolateral sixth and seventh ribs.
== END 2019-01-22 23:24 | disposition home or self-care (01) ==
LOC: ER 20:00
DX: R07.81 Pleurodynia (principal); F17.210 Nicotine dependence, cigarettes, uncomplicated; F90.9 Attention-deficit hyperactivity disorder, unspecified type; F31.9 Bipolar disorder, unspecified; Z88.1 Allergy status to other antibiotic agents; Z88.8 Allergy status to other drugs, medicaments and biological substances
CPT/HCPCS: 71046; 96372; 96374; 99283

== ENCOUNTER 2019-01-29 17:43 | Emergency (ER) | payer OTHER ==
[2019-01-29] MEDS ORDERED: DIAZEPAM 5 MG TABLET ONE (18:29)
[2019-01-29] MEDS ORDERED: KETOROLAC 30 MG/ML INJ ONE (18:30)
[2019-01-29] MEDS ORDERED: HYDROMORPHONE HCL 1 MG/ML INJ ONE (18:30)
[2019-01-29] MEDS ORDERED: NA CHLORIDE 0.9% 500 ML ONE (18:30)
[2019-01-29] MEDS ORDERED: ONDANSETRON 4 MG/2 ML VIAL ONE (18:30)
[2019-01-29 18:54] LABS: Absolute Lymphocytes (CBC) 2.1 K/uL (0.7-4.9); Absolute Monocytes 0.7 K/uL (0.1-1.3); Absolute Neutrophil 6.3 K/uL (1.8-8.0); Basophils % 0.7 % (0-1.3); Eosinophils % 1.5 % (0-4.4); Hematocrit 37.4 % (36.0-45.0); Lymphocytes % 22.4 % (15.3-44.8); MPV 8.7 fL (7.6-11.3)
--- NOTE | 2019-01-29 18:58 | RAD REPORT ---
EXAM DESCRIPTION: RAD - Thoracic Spine Ap/Lat - 01/29/2019 6:38 pm CLINICAL HISTORY: Fall, back pain COMPARISON: None. FINDINGS: AP & lateral views of the thoracic spine were obtained. Thoracic bodies are normal in heig ht and alignment. There are no acute or destructive bony processes seen. No paraspinal masses are srini ntified. Surgical hardware is present on the right side fusing T7-T10 graft material is present in th e disc spaces. Disc space narrowing is present spanning T7-T10. IMPRESSION: Postsurgical changes are present as detailed. No fracture or acute finding seen.
--- NOTE | 2019-01-29 19:00 | RAD REPORT ---
EXAM DESCRIPTION: RAD - Lumbar Spine 3 Views - 01/29/2019 6:38 pm CLINICAL HISTORY: Slip and fall, back pain COMPARISON: None. FINDINGS: A three-view lumbar spine examination was performed. Lumbar bodies are normal in height an d alignment. No fracture or acute bony process seen. Extensive postsurgical changes are present jenaro ing L4-S1 with additional surgical change fusing the SI joints. Graft material is present bridging th e L4-5 and L5-S1 disc spaces. No hardware fracture. No acute findings in the lower lumbar spine and l umbosacral junction. No pars defects identified. IMPRESSION: No compression fracture or acute lumbar spine finding. Extensive postsurgical change spanning L4-S1 and across the SI joints.
--- NOTE | 2019-01-29 19:10 | EDPHYS ---
Physician Documentation [facility] Name: Veda Espinoza Age: 48 yrs Sex: Female : 1970 Arrival Date: 01/29/2019 Time: 17:40 Bed 8 Private MD: ED Physician Lamonte Baer HPI: 01/29 18:00 This 48 yrs old Female presents to ER via EMS with complaints of Back Pain, loi Fall Injury. 18:00 The patient presents with pain and decreased range of motion, and an injury. The loi symptoms are located in the thoracic area. Onset: The symptoms/episode began/occurred this morning. The pain does not radiate. Associated signs and symptoms: The patient has no apparent associated signs or symptoms. The problem was sustained during a fall, while walking. Severity of symptoms: At their worst the symptoms were moderate, in the emergency department the symptoms are unchanged. The patient has not experienced similar symptoms in the past. Historical: - Allergies: 17:44 Augmentin; sv 17:44 Fentanyl; sv 17:44 Tylenol-Codeine; sv - PMHx: 17:44 ADD/ADHD; Bipolar disorder; Degenerative disc disease; sv - PSHx: 17:44 Appendectomy; Hysterectomy; Tonsillectomy; sv - Immunization history:: Adult Immunizations up to date. - Social history:: Smoking status: Patient uses tobacco products, denies chronic smoking, but will smoke occasionally, Patient/guardian denies using alcohol. - Ebola Screening: : No symptoms or risks identified at this time. - Family history:: not pertinent. ROS: 18:00 Constitutional: Negative for fever, chills, and weight loss, Eyes: Negative for injury, loi pain, redness, and discharge, ENT: Negative for injury, pain, and discharge, Neck: Negative for injury, pain, and swelling, Cardiovascular: Negative for chest pain, palpitations, and edema, Respiratory: Negative for shortness of breath, cough, wheezing, and pleuritic chest pain, Abdomen/GI: Negative for abdominal pain, nausea, vomiting, diarrhea, and constipation, : Negative for injury, bleeding, discharge, and swelling, MS/Extremity: Negative for injury and deformity, Skin: Negative for injury, rash, and discoloration, Neuro: Negative for headache, weakness, numbness, tingling, and seizure, Psych: Negative for depression, anxiety, suicide ideation, homicidal ideation, and hallucinations, Allergy/Immunology: Negative for hives, rash, and allergies, Endocrine: Negative for neck swelling, polydipsia, polyuria, polyphagia, and marked weight changes, Hematologic/Lymphatic: Negative for swollen nodes, abnormal bleeding, and unusual bruising. 18:00 Back: Positive for decreased range of motion, pain at rest, pain with movement, of the thoracic area and lumbar area. Exam: 18:00 Constitutional: This is a well developed, well nourished patient who is awake, alert, loi and in no acute distress. Head/Face: Normocephalic, atraumatic. Eyes: Pupils equal round and reactive to light, extra-ocular motions intact. Lids and lashes normal. Conjunctiva and sclera are non-icteric and not injected. Cornea within normal limits. Periorbital areas with no swelling, redness, or edema. ENT: Nares patent. No nasal discharge, no septal abnormalities noted. Tympanic membranes are normal and external auditory canals are clear. Oropharynx with no redness, swelling, or masses, exudates, or evidence of obstruction, uvula midline. Mucous membranes moist. Neck: Trachea midline, no thyromegaly or masses palpated, and no cervical lymphadenopathy. Supple, full range of motion without nuchal rigidity, or vertebral point tenderness. No Meningismus. Chest/axilla: Normal chest wall appearance and motion. Nontender with no deformity. No lesions are appreciated. Cardiovascular: Regular rate and rhythm with a normal S1 and S2. No gallops, murmurs, or rubs. Normal PMI, no JVD. No pulse deficits. Respiratory: Lungs have equal breath sounds bilaterally, clear to auscultation and percussion. No rales, rhonchi or wheezes noted. No increased work of breathing, no retractions or nasal flaring. Abdomen/GI: Soft, non-tender, with normal bowel sounds. No distension or tympany. No guarding or rebound. No evidence of tenderness throughout. Skin: Warm, dry with normal turgor. Normal color with no rashes, no lesions, and no evidence of cellulitis. MS/ Extremity: Pulses equal, no cyanosis. Neurovascular intact. Full, normal range of motion. Neuro: Awake and alert, GCS 15, oriented to person, place, time, and situation. Cranial nerves II-XII grossly intact. Motor strength 5/5 in all extremities. Sensory grossly intact. Cerebellar exam normal. Normal gait. Psych: Awake, alert, with orientation to person, place and time. Behavior, mood, and affect are within normal limits. 18:00 Back: ROM is painful, normal spinal alignment noted, CVA tenderness, is absent, vertebral tenderness, is not appreciated, muscle spasm, is appreciated in the left low back, left mid back, right mid back and right low back. Vital Signs: 17:44 BP 113 / 79; Pulse 90; Resp 20; Temp 98.3; Pulse Ox 97% ; Weight 57.15 kg; Height 5 ft. sv 4 in. (162.56 cm); Pain 10/10; 18:36 BP 106 / 48; Pulse 89; Resp 20; Pulse Ox 99% ; sv 19:41 BP 112 / 70; Pulse 86; Resp 18; Pulse Ox 98% on R/A; lp1 17:44 Body Mass Index 21.63 (57.15 kg, 162.56 cm) sv MDM: 17:44 Patient medically screened. [facility] 01/29 18:00 Order name: CBC with Diff; Complete Time: 19:07 [facility] 01/29 18:00 Order name: Comprehensive Metabolic Panel; Complete Time: 19:37 [facility] 01/29 17:47 Order name: XRAY Lumbar Spine (3 Views); Complete Time: 19:07 01/29 17:47 Order name: XRAY Thoracic Spine (Ap/lat); Complete Time: 19:07 01/29 19:25 Order name: Urine Dipstick--Ancillary (enter results); Complete Time: 19:37 [facility] 01/29 18:00 Order name: Urine Dipstick-Ancillary (obtain specimen); Complete Time: 19:27 [facility] Administered Medications: 18:43 Drug: NS 0.9% 500 ml Route: IV; Rate: bolus; Site: right antecubital; sv 19:42 Follow up: IV Status: Completed infusion; IV Intake: 500ml lp1 18:43 Drug: Zofran 4 mg Route: IVP; Site: right antecubital; sv 19:42 Follow up: Response: No adverse reaction lp1 18:43 Drug: Valium 5 mg Route: PO; sv 19:42 Follow up: Response: Marked relief of symptoms lp1 18:45 Drug: TORadol 30 mg Route: IVP; Site: right antecubital; sv 19:42 Follow up: Response: Marked relief of symptoms lp1 18:47 Drug: Dilaudid 1 mg Route: IVP; Infused Over: 3 mins; Site: right antecubital; sv 19:42 Follow up: Response: Pain is decreased lp1 Disposition: 01/29/19 19:08 Discharged to Home. Impression: Low back pain, Contusion of left back wall of thorax. - Condition is Stable. - Discharge Instructions: Back Pain, Adult, Chronic Back Pain, Musculoskeletal Pain, Back Injury Prevention, [id number], Back Pain, Adult, [id number]-[id number], Back Exercises, [id number]. - Prescriptions for Valium 5 mg Oral Tablet - take 1 tablet by ORAL route every 8 hours As needed; 20 tablet. Motrin IB 200 mg Oral Tablet - take 2 tablet by ORAL route every 6 hours As needed as needed with food; 30 tablet. - Medication Reconciliation Form, Thank You Letter, Antibiotic Education, Prescription Opioid Use form. - Follow up: Private Physician; When: 2 - 3 days; Reason: Recheck today's complaints, Continuance of care, Re-evaluation by your physician. Follow up: Chris Joshi MD; When: 5 - 6 days; Reason: Recheck today's complaints, Re-evaluation by your physician. - Problem is new. - Symptoms have improved. Signatures: Dispatcher [employer] EDMS Shivani Bedoya RN RN sv Anderson, Corey, MD MD cha Pena, Laura, RN RN lp1 Corrections: (The following items were deleted from the chart) 19:43 19:08 01/29/2019 19:08 Discharged to Home. Impression: Low back pain; Contusion of left lp1 back wall of thorax. Condition is Stable. Discharge Instructions: Back Pain, Adult, Chronic Back Pain, Musculoskeletal Pain, Back Injury Prevention, [id number]-[id number], Back Pain, Adult, Qqls-[id number], Back Exercises, Kqhk-nv-Frur. Prescriptions for Valium 5 mg Oral Tablet - take 1 tablet by ORAL route every 8 hours As needed; 20 tablet, Motrin IB 200 mg Oral Tablet - take 2 tablet by ORAL route every 6 hours As needed as needed with food; 30 tablet. and Forms are Medication Reconciliation Form, Thank You Letter, Antibiotic Education, Prescription Opioid Use. Follow up: Private Physician; When: 2 - 3 days; Reason: Recheck today's complaints, Continuance of care, Re-evaluation by your physician. Follow up: Chris Joshi; When: 5 - 6 days; Reason: Recheck today's complaints, Re-evaluation by your physician. Problem is new. Symptoms have improved. loi
--- NOTE | 2019-01-29 19:10 | ER ---
Nurse's Notes [facility] Name: Veda Espinoza Age: 48 yrs Sex: Female : 1970 Arrival Date: 01/29/2019 Time: 17:40 Bed 8 Private MD: Diagnosis: Low back pain;Contusion of left back wall of thorax Presentation: 01/29 17:34 Presenting complaint: EMS states: slipped and fell on rios grease on the ground, sv negative LOC, c/o mid back pain that occurred today. Transition of care: patient was not received from another setting of care. Onset of symptoms was January 29, 2019 at 17:00. Risk Assessment: Do you want to hurt yourself or someone else? Patient reports no desire to harm self or others. Initial Sepsis Screen: Does the patient meet any 2 criteria? No. Patient's initial sepsis screen is negative. Does the patient have a suspected source of infection? No. Patient's initial sepsis screen is negative. Care prior to arrival: None. 17:34 Method Of Arrival: EMS: [facility] sv 17:34 Acuity: OSMANY 4 sv Triage Assessment: 17:44 General: Appears in no apparent distress. uncomfortable, well developed, Behavior is sv cooperative, appropriate for age, restless. Pain: Complains of pain in mid back area Pain currently is 10 out of 10 on a pain scale. Quality of pain is described as sharp, tender, Pain began 1 hour ago. Is continuous, Aggravated by increased activity, repositioning. Neuro: Level of Consciousness is awake, alert, obeys commands, Oriented to person, place, time, situation, Moves all extremities. Full function. Respiratory: Respiratory effort is even, unlabored, Respiratory pattern is regular, symmetrical. Derm: Skin is pink, warm \T\ dry. Musculoskeletal: Range of motion: intact in all extremities. Historical: - Allergies: 17:44 Augmentin; sv 17:44 Fentanyl; sv 17:44 Tylenol-Codeine; sv - PMHx: 17:44 ADD/ADHD; Bipolar disorder; Degenerative disc disease; sv - PSHx: 17:44 Appendectomy; Hysterectomy; Tonsillectomy; sv - Immunization history:: Adult Immunizations up to date. - Social history:: Smoking status: Patient uses tobacco products, denies chronic smoking, but will smoke occasionally, Patient/guardian denies using alcohol. - Ebola Screening: : No symptoms or risks identified at this time. - Family history:: not pertinent. Screenin:45 Abuse screen: Denies threats or abuse. Denies injuries from another. Nutritional sv screening: No deficits noted. Tuberculosis screening: No symptoms or risk factors identified. Fall Risk None identified. Assessment: 18:05 Reassessment: Pt currently in xray. sv 18:43 Reassessment: Patient appears in no apparent distress at this time. No changes from sv previously documented assessment. Patient and/or family updated on plan of care and expected duration. Pain level reassessed. Patient is alert, oriented x 3, equal unlabored respirations, skin warm/dry/pink. 19:41 Reassessment: Patient appears in no apparent distress at this time. Patient states some lp1 relief with pain medication administered Patient states feeling better. Patient states symptoms have improved. Vital Signs: 17:44 BP 113 / 79; Pulse 90; Resp 20; Temp 98.3; Pulse Ox 97% ; Weight 57.15 kg; Height 5 ft. sv 4 in. (162.56 cm); Pain 10/10; 18:36 BP 106 / 48; Pulse 89; Resp 20; Pulse Ox 99% ; sv 19:41 BP 112 / 70; Pulse 86; Resp 18; Pulse Ox 98% on R/A; lp1 17:44 Body Mass Index 21.63 (57.15 kg, 162.56 cm) sv ED Course: 17:40 Patient arrived in ED. sv 17:40 Shivani Bedoya, JOSAFAT is Primary Nurse. sv 17:42 Triage completed. sv 17:44 Lamonte Baer MD is Attending Physician. loi 17:44 Arm band placed on. sv 17:45 Patient has correct armband on for positive identification. Bed in low position. Side sv rails up X2. Pulse ox on. NIBP on. Door closed. Warm blanket given. Head of bed elevated. 17:46 Awaiting ED provider evaluation. sv 18:40 XRAY Lumbar Spine (3 Views) In Process Unspecified. EDMS 18:40 XRAY Thoracic Spine (Ap/lat) In Process Unspecified. EDMS 18:43 Initial lab(s) drawn, by me, sent to lab. Inserted saline lock: 22 gauge in right jb1 antecubital area, using aseptic technique. Blood collected. 19:08 Chris Joshi MD is Referral Physician. [facility] 19:08 Report given to Lizette MAURICE and Rick MAURICE. sv 19:09 Primary Nurse role handed off by Shivani Bedoya RN sv 19:31 Lizette Evangelista, RN is Primary Nurse. lp1 19:31 No provider procedures requiring assistance completed. lp1 19:43 IV discontinued, No redness/swelling at site. Pressure dressing applied. lp1 Administered Medications: 18:43 Drug: NS 0.9% 500 ml Route: IV; Rate: bolus; Site: right antecubital; sv 19:42 Follow up: IV Status: Completed infusion; IV Intake: 500ml lp1 18:43 Drug: Zofran 4 mg Route: IVP; Site: right antecubital; sv 19:42 Follow up: Response: No adverse reaction lp1 18:43 Drug: Valium 5 mg Route: PO; sv 19:42 Follow up: Response: Marked relief of symptoms lp1 18:45 Drug: TORadol 30 mg Route: IVP; Site: right antecubital; sv 19:42 Follow up: Response: Marked relief of symptoms lp1 18:47 Drug: Dilaudid 1 mg Route: IVP; Infused Over: 3 mins; Site: right antecubital; sv 19:42 Follow up: Response: Pain is decreased lp1 Intake: 19:42 IV: 500ml; Total: 500ml. lp1 Outcome: 19:08 Discharge ordered by . [facility] 19:43 Discharged to home ambulatory, with friend. lp1 19:43 Condition: good 19:43 Discharge instructions given to patient, Instructed on discharge instructions, follow up and referral plans. medication usage, Demonstrated understanding of instructions, follow-up care, medications, Prescriptions given X 2. 19:43 Patient left the ED. lp1 Signatures: Dispatcher [employer] EDMS Dm Desai jb1 Shivani Bedoya RN RN Lamonte Batista MD MD cha Pena, Laura, JOSAFAT RN lp1 Corrections: (The following items were deleted from the chart) 17:47 17:44 BP 113 / 79; Pulse 104bpm; Resp 20bpm; Pulse Ox 97%; Temp 98.3F; 57.15 kg; Height sv 5 ft. 4 in.; BMI: 21.6; Pain 10/10; sv
[2019-01-29 19:15] LABS: ALT/SGPT 24 U/L (12-78); AST/SGOT 13 U/L (15-37); Albumin 3.1 g/dL (3.4-5.0); Alkaline Phosphatase 100 U/L (45-117); BUN Blood Urea Nitrogen 20 mg/dL (7-18); Bicarbonate 27 mmol/L (21-32); Glucose Level 104 mg/dL (74-106); Potassium 3.9 mmol/L (3.5-5.1); Protein, Total 6.6 g/dL (6.4-8.2); Sodium Level 141 mmol/L (136-145)
[2019-01-29 19:28] LABS: Urine Blood NEGATIVE (NEG); Urine Glucose NEGATIVE (NEG); Urine Protein NEGATIVE (NEG); Urine Specific Gravity >1.030 (1.005-1.030); Urine pH 6.5 (5.0-7.0)
[2019-01-29 19:28] LABS: Bilirubin Total < 0.1 mg/dL (0.2-1.0)
== END 2019-01-29 19:43 | disposition home or self-care (01) ==
LOC: ER 17:43
DX: S20.222A Contusion of left back wall of thorax, initial encounter (principal); W01.0XXA Fall on same level from slipping, tripping and stumbling without subsequent striking against object, initial encounter; Y93.9 Activity, unspecified; Y92.9 Unspecified place or not applicable; Z88.6 Allergy status to analgesic agent; Z88.1 Allergy status to other antibiotic agents
CPT/HCPCS: 96361; 85025; 36415; 81003; 80053; 72100; 72070; 96375; 96374; 99284; J1170; J2405

== ENCOUNTER 2019-03-02 16:53 | Emergency (ER) | payer MEDICARE ==
[2019-03-02] MEDS ORDERED: ALBUTEROL 2.5 MG/3 ML NEB SOL ONE (18:54)
[2019-03-02] MEDS ORDERED: IPRATROPIUM BROM 0.5MG/2.5ML ONE (18:55)
[2019-03-02] MEDS ORDERED: predniSONE 20 MG TAB ONE (18:55)
[2019-03-02] MEDS ORDERED: CEFTRIAXONE 1000 MG/VIAL ONE (18:55)
[2019-03-02] MEDS ORDERED: WATER FOR INJ,STERILE 10 ML ONE (18:55)
--- NOTE | 2019-03-02 19:00 | ER ---
Nurse's Notes [facility] Name: Vdea Espinoza Age: 48 yrs Sex: Female : 1970 Arrival Date: 03/02/2019 Time: 16:53 Bed 30 Private MD: Magdy Hernandez Diagnosis: Acute upper respiratory infection, unspecified;Bronchitis, not specified as acute or chronic;Tobacco abuse counseling;Tobacco use Presentation: 03/02 17:03 Presenting complaint: Patient states: cough, sore throat, yamila ear pain, SOB that began aa5 2-3 days ago. Pt states "I know I was just outside smoking I am so sorry but bad habits are hard to break". Transition of care: patient was not received from another setting of care. Onset of symptoms was February 2019. Risk Assessment: Do you want to hurt yourself or someone else? Patient reports no desire to harm self or others. Initial Sepsis Screen: Does the patient meet any 2 criteria? No. Patient's initial sepsis screen is negative. Does the patient have a suspected source of infection? No. Patient's initial sepsis screen is negative. Care prior to arrival: None. 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 - Social history:: Smoking status: Patient uses tobacco products, smokes one-half pack cigarettes per day. - Ebola Screening: : No symptoms or risks identified at this time. - Family history:: not pertinent. Screenin:31 Abuse screen: Denies threats or abuse. Denies injuries from another. Nutritional rv screening: No deficits noted. Tuberculosis screening: No symptoms or risk factors identified. Fall Risk None identified. Assessment: 19:00 General: Appears in no apparent distress. comfortable, Behavior is calm, cooperative. rv 19:00 Pain: Denies pain. Neuro: Level of Consciousness is awake, alert, obeys commands, rv Oriented to person, place, time, situation. Cardiovascular: Capillary refill < 3 seconds. Respiratory: Airway is patent. GI: No signs and/or symptoms were reported involving the gastrointestinal system. : No signs and/or symptoms were reported regarding the genitourinary system. EENT: No signs and/or symptoms were reported regarding the EENT system. Derm: Skin is intact. Musculoskeletal: No signs and/or symptoms reported regarding the musculoskeletal system. Vital Signs: 17:05 BP 120 / 63; Pulse 81; Resp 18 S; Temp 97.6(TE); Pulse Ox 98% on R/A; Weight 63.5 kg aa5 (R); Height 5 ft. 4 in. (162.56 cm) (R); Pain 6/10; 19:29 BP 118 / 66 RA; Pulse 96; Resp 17 S; Pulse Ox 99% on R/A; rv 17:05 Body Mass Index 24.03 (63.50 kg, 162.56 cm) aa5 ED Course: 16:53 Patient arrived in ED. as 16:53 Magdy Hernandez DO is Private Physician. as 17:03 Arm band placed on. aa5 17:04 Triage completed. aa5 18:21 Lamonte Baer MD is Attending Physician. loi 18:25 Chidi Dalton RN is Primary Nurse. rv 18:51 Chest Pa And Lat (2 Views) XRAY In Process Unspecified. EDMS 19:00 Magdy Hernandez DO is Referral Physician. loi 19:31 Patient has correct armband on for positive identification. Bed in low position. Call rv light in reach. Side rails up X 1. Adult w/ patient. Pulse ox on. NIBP on. 19:32 No provider procedures requiring assistance completed. Patient did not have IV access rv during this emergency room visit. Administered Medications: 18:30 Drug: Albuterol 5 mg Route: Inhalation; rv 19:29 Follow up: Response: Marked relief of symptoms rv 18:30 Drug: AtroVENT Aerosol 0.5 mg Route: Inhalation; rv 19:29 Follow up: Response: Marked relief of symptoms rv 19:15 Drug: Zithromax 500 mg Route: PO; rv 19:29 Follow up: Response: No adverse reaction rv 19:15 Drug: predniSONE 40 mg Route: PO; rv 19:29 Follow up: Response: No adverse reaction rv 19:20 Drug: Rocephin (cefTRIAXone) 1 grams Route: IM; Site: right gluteus; rv 19:29 Follow up: Response: No adverse reaction rv Outcome: 19:00 Discharge ordered by . loi 19:32 Discharged to home ambulatory. rv 19:32 Condition: good 19:32 Discharge instructions given to patient, Instructed on discharge instructions, follow up and referral plans. medication usage, Demonstrated understanding of instructions, follow-up care, medications, Prescriptions given X 3. 19:33 Patient left the ED. rv Signatures: Dispatcher [employer] EDLamonte Garibay MD MD cha Martinez, Amelia as Calderon, Audri RN RN aa5 Chidi Dalton RN RN rv Corrections: (The following items were deleted from the chart) 17:06 17:05 LMP N/A - Post-menopause aa5 aa5
--- NOTE | 2019-03-02 19:00 | EDPHYS ---
Physician Documentation [facility] Name: Veda Espinoza Age: 48 yrs Sex: Female : 1970 Arrival Date: 03/02/2019 Time: 16:53 Bed 30 Private MD: Eriberto Hernandezh ED Physician Lamonte Baer HPI: 03/02 18:32 This 48 yrs old Female presents to ER via Ambulatory with complaints of Cold loi Symptoms. 18:32 The patient or guardian reports cough, difficulty breathing. Onset: The loi symptoms/episode began/occurred 3 day(s) ago. Modifying factors: The symptoms are alleviated by remaining still, the symptoms are aggravated by activity. The patient or guardian reports airway noise. Severity of symptoms: At their worst the symptoms were mild, moderate, in the emergency department the symptoms are unchanged. Associated signs and symptoms: The patient has no apparent associated signs or symptoms. Modifying factors: The symptoms are alleviated by nebulizer treatment, the symptoms are aggravated by exertion, smoke. Severity of symptoms: At their worst the symptoms were mild moderate in the emergency department the symptoms are unchanged. [employer]AT[employer] INTERN: 17:05 LMP N/A - Hysterectomy aa5 Historical: - Allergies: 17:05 Augmentin; aa5 17:05 Fentanyl; aa5 19:32 Tylenol-Codeine; rv - Home Meds: 19:32 Adderall XR Oral [Active]; diazepam Oral [Active]; imotrigine [Active]; Risperdal Oral rv [Active]; venlafaxine Oral [Active]; - PMHx: 17:05 ADD/ADHD; Bipolar disorder; Degenerative disc disease; aa5 - PSHx: 17:05 Appendectomy; Hysterectomy; Tonsillectomy; aa5 - Immunization history:: Flu vaccine is up to date. - Social history:: Smoking status: Patient uses tobacco products, smokes one-half pack cigarettes per day. - Ebola Screening: : No symptoms or risks identified at this time. - Family history:: not pertinent. ROS: 18:32 Constitutional: Negative for fever, chills, and weight loss, Eyes: Negative for injury, loi pain, redness, and discharge, ENT: Negative for injury, pain, and discharge, Neck: Negative for injury, pain, and swelling, Cardiovascular: Negative for chest pain, palpitations, and edema, Abdomen/GI: Negative for abdominal pain, nausea, vomiting, diarrhea, and constipation, Back: Negative for injury and pain, : Negative for injury, bleeding, discharge, and swelling, MS/Extremity: Negative for injury and deformity, Skin: Negative for injury, rash, and discoloration, Neuro: Negative for headache, weakness, numbness, tingling, and seizure, Psych: Negative for depression, anxiety, suicide ideation, homicidal ideation, and hallucinations, Allergy/Immunology: Negative for hives, rash, and allergies, Endocrine: Negative for neck swelling, polydipsia, polyuria, polyphagia, and marked weight changes, Hematologic/Lymphatic: Negative for swollen nodes, abnormal bleeding, and unusual bruising. 18:32 Respiratory: Positive for cough, "sounds productive". Exam: 18:32 Constitutional: This is a well developed, well nourished patient who is awake, alert, loi and in no acute distress. Head/Face: Normocephalic, atraumatic. Eyes: Pupils equal round and reactive to light, extra-ocular motions intact. Lids and lashes normal. Conjunctiva and sclera are non-icteric and not injected. Cornea within normal limits. Periorbital areas with no swelling, redness, or edema. ENT: Nares patent. No nasal discharge, no septal abnormalities noted. Tympanic membranes are normal and external auditory canals are clear. Oropharynx with no redness, swelling, or masses, exudates, or evidence of obstruction, uvula midline. Mucous membranes moist. Neck: Trachea midline, no thyromegaly or masses palpated, and no cervical lymphadenopathy. Supple, full range of motion without nuchal rigidity, or vertebral point tenderness. No Meningismus. Chest/axilla: Normal chest wall appearance and motion. Nontender with no deformity. No lesions are appreciated. Cardiovascular: Regular rate and rhythm with a normal S1 and S2. No gallops, murmurs, or rubs. Normal PMI, no JVD. No pulse deficits. Abdomen/GI: Soft, non-tender, with normal bowel sounds. No distension or tympany. No guarding or rebound. No evidence of tenderness throughout. Back: No spinal tenderness. No costovertebral tenderness. Full range of motion. Skin: Warm, dry with normal turgor. Normal color with no rashes, no lesions, and no evidence of cellulitis. MS/ Extremity: Pulses equal, no cyanosis. Neurovascular intact. Full, normal range of motion. Neuro: Awake and alert, GCS 15, oriented to person, place, time, and situation. Cranial nerves II-XII grossly intact. Motor strength 5/5 in all extremities. Sensory grossly intact. Cerebellar exam normal. Normal gait. Psych: Awake, alert, with orientation to person, place and time. Behavior, mood, and affect are within normal limits. 18:32 Respiratory: mild respiratory distress is noted, Respirations: labored breathing, that is mild, Breath sounds: bronchial sounds, decreased breath sounds, rhonchi, that are mild, Respiratory rate: 18 Vital Signs: 17:05 BP 120 / 63; Pulse 81; Resp 18 S; Temp 97.6(TE); Pulse Ox 98% on R/A; Weight 63.5 kg aa5 (R); Height 5 ft. 4 in. (162.56 cm) (R); Pain 6/10; 19:29 BP 118 / 66 RA; Pulse 96; Resp 17 S; Pulse Ox 99% on R/A; rv 17:05 Body Mass Index 24.03 (63.50 kg, 162.56 cm) aa5 MDM: 18:21 Patient medically screened. [facility] 18:35 Data reviewed: vital signs, nurses notes, EKG, radiologic studies. [facility] 03/02 18:31 Order name: Chest Pa And Lat (2 Views) XRAY [facility] 03/02 18:31 Order name: EKG; Complete Time: 18:32 [facility] 03/02 18:31 Order name: EKG - Nurse/Tech; Complete Time: 03:12 [facility] Administered Medications: 18:30 Drug: Albuterol 5 mg Route: Inhalation; rv 19:29 Follow up: Response: Marked relief of symptoms rv 18:30 Drug: AtroVENT Aerosol 0.5 mg Route: Inhalation; rv 19:29 Follow up: Response: Marked relief of symptoms rv 19:15 Drug: Zithromax 500 mg Route: PO; rv 19:29 Follow up: Response: No adverse reaction rv 19:15 Drug: predniSONE 40 mg Route: PO; rv 19:29 Follow up: Response: No adverse reaction rv 19:20 Drug: Rocephin (cefTRIAXone) 1 grams Route: IM; Site: right gluteus; rv 19:29 Follow up: Response: No adverse reaction rv Disposition: 03/02/19 19:00 Discharged to Home. Impression: Acute upper respiratory infection, unspecified, Bronchitis, not specified as acute or chronic, Tobacco abuse counseling, Tobacco use. - Condition is Stable. - Discharge Instructions: Acute Bronchitis, Adult, How to Use an Inhaler, Steps to Quit Smoking, Smoking Hazards, Upper Respiratory Infection, Adult, Cool Mist Vaporizer, Steps to Quit Smoking, [id number], Cough, Adult, [id number], Cough, Adult. - Prescriptions for Cheratussin AC 10- 100 mg/5 mL Oral liquid - take 10 milliliter by ORAL route every 4 hours; 150 milliliter. Medrol (Magdiel) 4 mg Oral Tablets, Dose Pack - take 1 tablet by ORAL route as directed - follow package instructions; 1 packet. Albuterol Sulfate 90 mcg/actuation - inhale 1-2 puff by INHALATION route every 4-6 hours; 1 Inhaler. Zithromax 500 mg Oral Tablet - take 1 tablet by ORAL route once daily for 4 days; 4 tablet. - Medication Reconciliation Form, Thank You Letter, Antibiotic Education, Prescription Opioid Use form. - Follow up: Magdy Hernandez; When: 2 - 3 days; Reason: Recheck today's complaints, Continuance of care, Re-evaluation by your physician. - Problem is new. - Symptoms have improved. Signatures: Dispatcher [employer] EDLamonte Garibay MD MD cha Calderon, Audri, RN RN aa5 Chidi Dalton RN RN rv Corrections: (The following items were deleted from the chart) 19:01 19:00 03/02/2019 19:00 Discharged to Home. Impression: Acute upper respiratory loi infection, unspecified; Bronchitis, not specified as acute or chronic. Condition is Stable. Discharge Instructions: Acute Bronchitis, Adult, How to Use an Inhaler, Upper Respiratory Infection, Adult, Cool Mist Vaporizer, Cough, Adult, [id number], Cough, Adult. Prescriptions for Cheratussin AC 10-100 mg/5 mL Oral liquid - take 10 milliliter by ORAL route every 4 hours; 150 milliliter, Medrol (Magdiel) 4 mg Oral Tablets, Dose Pack - take 1 tablet by ORAL route as directed - follow package instructions; 1 packet, Albuterol Sulfate 90 mcg/actuation - inhale 1-2 puff by INHALATION route every 4-6 hours; 1 Inhaler, Zithromax 500 mg Oral Tablet - take 1 tablet by ORAL route once daily for 4 days; 4 tablet. and Forms are Medication Reconciliation Form, Thank You Letter, Antibiotic Education, Prescription Opioid Use. Follow up: Magdy Hernandez; When: 2 - 3 days; Reason: Recheck today's complaints, Continuance of care, Re-evaluation by your physician. Problem is new. Symptoms have improved. [facility] 19:33 19:01 03/02/2019 19:00 Discharged to Home. Impression: Acute upper respiratory rv infection, unspecified; Bronchitis, not specified as acute or chronic; Tobacco abuse counseling; Tobacco use. Condition is Stable. Discharge Instructions: Acute Bronchitis, Adult, How to Use an Inhaler, Upper Respiratory Infection, Adult, Cool Mist Vaporizer, Cough, Adult, [id number], Cough, Adult, Steps to Quit Smoking, Smoking Hazards, Steps to Quit Smoking, [id number]. Prescriptions for Cheratussin AC 10-100 mg/5 mL Oral liquid - take 10 milliliter by ORAL route every 4 hours; 150 milliliter, Medrol (Magdiel) 4 mg Oral Tablets, Dose Pack - take 1 tablet by ORAL route as directed - follow package instructions; 1 packet, Albuterol Sulfate 90 mcg/actuation - inhale 1-2 puff by INHALATION route every 4-6 hours; 1 Inhaler, Zithromax 500 mg Oral Tablet - take 1 tablet by ORAL route once daily for 4 days; 4 tablet. and Forms are Medication Reconciliation Form, Thank You Letter, Antibiotic Education, Prescription Opioid Use. Follow up: Magdy Hernandez; When: 2 - 3 days; Reason: Recheck today's complaints, Continuance of care, Re-evaluation by your physician. Problem is new. Symptoms have improved. [facility]
--- NOTE | 2019-03-02 19:11 | RAD REPORT ---
EXAM DESCRIPTION: RAD - Chest Pa And Lat (2 Views) - 03/02/2019 6:51 pm CLINICAL HISTORY: Cough, sore throat, shortness of breath COMPARISON: January 2019 TECHNIQUE: PA and lateral views of the chest were obtained. FINDINGS: The lungs are clear. No acute lung parenchymal process. Interstitial pattern matches comp arison. Heart size is normal and central vasculature is within normal limits. No pleural effusion or pneumothorax seen. No acute bony finding noted. No aortic abnormality. IMPRESSION: No acute cardiopulmonary process. No significant interval change.
[2019-03-02] MEDS ORDERED: AZITHROMYCIN 250 MG TAB ONE (19:39)
--- NOTE | 2019-03-03 05:51 | EKG ---
Test Date: 2019-03-02 Test Time: 18:58:14 Scalp Specialist: MEASUREMENT RESULTS: Intervals: Rate: 60 LA: 170 QRSD: 86 QT: 400 QTc: 400 [place]: P: 50 LA: 170 QRS: 78 T: 76 INTERPRETIVE STATEMENTS: Normal sinus rhythm Normal ECG No previous ECG available for comparison Electronically Signed On 03-03-19 05:51:18 CDT by Matt Roper
== END 2019-03-02 19:33 | disposition home or self-care (01) ==
LOC: ER 16:53
DX: J40 Bronchitis, not specified as acute or chronic (principal); Z72.0 Tobacco use; Z71.6 Tobacco abuse counseling; F31.9 Bipolar disorder, unspecified; F90.9 Attention-deficit hyperactivity disorder, unspecified type; Z88.1 Allergy status to other antibiotic agents; Z88.5 Allergy status to narcotic agent; Z88.8 Allergy status to other drugs, medicaments and biological substances
CPT/HCPCS: 71046; 93005; 96372; 99284; J7512

== ENCOUNTER 2019-12-15 11:36 | Emergency (ER) | payer MEDICARE, OTHER ==
--- OUTSIDE RECORDS SUMMARY | 2019-12-15 11:39 | XMS REPORT | Summary of Care ---
:1970 Author Organization [facility] [employer] Address [address] [place] [id number] Care Team Providers Name Role Phone Chris Franco MD Primary Care Provider Reason for Visit Reason Comments Refill Request Encounter Details Date Type Department Care Team Description 06/13/2019 Refill [facility] and Chris Franco III, MD Refill Request Adult Primary Care- [address] [place] [address] Dr. Gonzales [address] [address] [address] [place] [address] [phone] Allergies Active Allergy Reactions Severity Noted Date Comments Amoxicillin-Pot Clavulanate Hives Fentanyl Shortness of Breath documented as of this encounter (statuses as of 06/18/2019) Medications Medication Sig Dispensed Refills Start Date End Date Status lamoTRIgine 200 mg Take 1 tablet 30 tablet 11 03/17/2019 Active tabletIndications: by mouth Bipolar 1 disorder daily. with moderate shar zolpidem (AMBIEN) 5 Take 1 tablet 30 tablet 5 03/17/2019 Active mg tabletIndications: by mouth at Insomnia, unspecified bedtime as type needed for Insomnia. venlafaxine XR 75 mg Take 1 30 capsule 11 04/15/2019 Active 24 hr capsule capsule by mouth daily with breakfast. busPIRone 10 mg Take 1 tablet 30 tablet 3 04/15/2019 Active tablet by mouth 2 (two) times daily. traMADOL 50 mg Take 1 tablet 20 tablet 0 05/29/2019 Active tabletIndications: by mouth Bipolar 1 disorder every 6 (six) with moderate shar hours as needed for Pain (scale 7-10). cyclobenzaprine 5 mg Take 1 tablet 28 tablet 0 05/30/2019 Active tabletIndications: by mouth 3 Chronic midline (three) times thoracic back pain daily as needed for Muscle Spasms. traMADol 50 mg Take 1 tablet 12 tablet 0 06/18/2019 Active tabletIndications: by mouth Chronic midline every 6 (six) thoracic back pain hours as needed for Pain (scale 7-10). traMADOL 50 mg Take 1 tablet 12 tablet 0 05/30/2019 Discontinued tabletIndications: by mouth 9 Chronic midline every 6 (six) thoracic back pain hours as needed for Pain (scale 7-10). documented as of this encounter (statuses as of 06/18/2019) Active Problems No known active problemsdocumented as of this encounter (statuses as of 2018) Social History Tobacco Use Types Packs/Day Years Used Date Current Every Day Smoker Cigarettes 0.5 Smokeless Tobacco: Never Used Alcohol Use Drinks/Week oz/Week Comments No Sex Assigned at Date Recorded Not on file Job Start Date Occupation Industry Not on file Not on file Not on file Travel History Travel Start Travel End No recent travel history available. documented as of this encounter Last Filed Vital Signs Not on filedocumented in this encounter Plan of Treatment Date Type Specialty Care Team Description 06/24/2019 Office Visit Neurological Surgery Al Tucker MD [address] [place] [id number] Health Maintenance Due Date Last Done Comments PNEUMOCOCCAL 0-64 YEARS COMBINED SERIES (1 of - 1975 PPSV23) DTaP,Tdap,and Td Vaccines (1 - Tdap) 1988 PAP SMEAR 1990 MAMMOGRAM 2009 INFLUENZA VACCINE 07/20/2019 documented as of this encounter Results Not on filedocumented in this encounter Visit Diagnoses Diagnosis Chronic midline thoracic back pain documented in this encounter Insurance Payer Benefit Plan / Subscriber ID Effective Phone Address Type Group Dates [facility] MEDICARE [id number] 2019-[facility] Medicare Adv HEALTHCARE - COMPLETE nt [facility] MANAGED MEDICARE documented as of this encounter
--- OUTSIDE RECORDS SUMMARY | 2019-12-15 11:39 | XMS REPORT | Summary of Care ---
:1970 Author Organization [facility] Address [address] [place] [id number] Care Team Providers Name Role Phone Chris Franco MD Primary Care Provider Reason for Visit Reason Comments Refill Request Encounter Details Date Type Department Care Team Description 06/27/2019 Telephone [facility] Pediatric and Chris Franco III, MD Refill Request Adult Primary Care- [address] [place] [address] Dr. Gonzales [facility] [address] [place] [address] [place] [address] [address] [place] [address] [phone] Allergies Active Allergy Reactions Severity Noted Date Comments Amoxicillin-Pot Clavulanate Hives Fentanyl Shortness of Breath documented as of this encounter (statuses as of 06/27/2019) Medications Medication Sig Dispensed Refills Start Date End Date Status lamoTRIgine 200 mg Take 1 tablet 30 tablet 11 03/17/2019 Active tabletIndications: by mouth daily. Bipolar 1 disorder with moderate shar zolpidem (AMBIEN) 5 mg Take 1 tablet 30 tablet 5 03/17/2019 Active tabletIndications: by mouth at Insomnia, unspecified bedtime as type needed for Insomnia. venlafaxine XR 75 mg 24 Take 1 capsule 30 capsule 11 04/15/2019 Active hr capsule by mouth daily with breakfast. busPIRone 10 mg tablet Take 1 tablet 30 tablet 3 04/15/2019 Active by mouth 2 (two) times daily. traMADOL 50 mg Take 1 tablet 20 tablet 0 05/29/2019 Active tabletIndications: by mouth every Bipolar 1 disorder with 6 (six) hours moderate shar as needed for Pain (scale 7-10). cyclobenzaprine 5 mg Take 1 tablet 28 tablet 0 05/30/2019 Active tabletIndications: by mouth 3 Chronic midline thoracic (three) times back pain daily as needed for Muscle Spasms. traMADol 50 mg Take 1 tablet 12 tablet 0 06/18/2019 Active tabletIndications: by mouth every Chronic midline thoracic 6 (six) hours back pain as needed for Pain (scale 7-10). documented as of this encounter (statuses as of 06/27/2019) Active Problems No known active problemsdocumented as [...] filedocumented in this encounter Plan of Treatment Health Maintenance Due Date Last Done Comments PNEUMOCOCCAL 0-64 YEARS COMBINED SERIES (1 of - 1975 PPSV23) DTaP,Tdap,and Td Vaccines (1 - Tdap) 1988 PAP SMEAR 1990 MAMMOGRAM 2009 INFLUENZA VACCINE 07/20/2019 documented as of this encounter Results Not on filedocumented in this encounter Insurance Payer Benefit Plan / Subscriber ID Effective Phone Address Type Group Dates [employer] MEDICARE [id number] 2019-[facility] Medicare Adv HEALTHCARE - COMPLETE nt [place] MANAGED MEDICARE documented as of this encounter
--- OUTSIDE RECORDS SUMMARY | 2019-12-15 11:40 | XMS REPORT | Summary of Care ---
:1970 Author Organization [facility] Address [address] [place] [address] Care Team Providers Name Role Phone Chris Franco MD Primary Care Provider Reason for Visit Reason Comments Refill Request Encounter Details Date Type Department Care Team Description 06/27/2019 Telephone [facility] Pediatric and Chris Franco III, MD Refill Request Adult Primary Care- [address] [place] [address] Dr. Gonzales [facility] [address] [place] [address] [place] [address] [address] [place] [address] [phone] Allergies Active Allergy Reactions Severity Noted Date [...] Address Type Group Dates [employer] MEDICARE [id number] 2019-[facility] Medicare Adv HEALTHCARE - COMPLETE nt [place] MANAGED MEDICARE documented as of this encounter
--- OUTSIDE RECORDS SUMMARY | 2019-12-15 11:40 | XMS REPORT ---
:1970 [facility] Guerrero [address] [place] [address] Care Team Providers Name Role Phone Unavailable Unavailable Unavailable Problems This patient has no known problems. Allergies, Adverse Reactions, Alerts This patient has no known allergies or adverse reactions. Medications This patient has no known medications.
[2019-12-15] MEDS ORDERED: dexAMETHasone 10 MG/ML VIAL ONE (12:13)
[2019-12-15] MEDS ORDERED: KETOROLAC 30 MG/ML INJ ONE (12:13)
[2019-12-15] MEDS ORDERED: DIAZEPAM 5 MG TABLET ONE (12:13)
--- NOTE | 2019-12-15 12:54 | ER ---
Nurse's Notes [facility] Name: Veda Espinoza Age: 49 yrs Sex: Female : 1970 Arrival Date: 12/15/2019 Time: 11:41 Bed 24 Private MD: Diagnosis: Radiculopathy, cervical region Presentation: 12/15 11:44 Presenting complaint: Patient states: my neck and my LEFT shoulder and i cant grasp tw2 anything in my LEFT arm, my neck and shoulder have been hurting for a few weeks now, i have been using patches but it is not helping, i have degenerative joint disease. Transition of care: patient was not received from another setting of care. Onset of symptoms was December 15, 2019. Risk Assessment: Do you want to hurt yourself or someone else? Patient reports no desire to harm self or others. Initial Sepsis Screen: Does the patient meet any 2 criteria? No. Patient's initial sepsis screen is negative. Does the patient have a suspected source of infection? Yes:. Care prior to arrival: None. 11:44 Method Of Arrival: Ambulatory tw2 11:44 Acuity: OSMANY 3 tw2 Triage Assessment: 11:48 General: Appears uncomfortable, slender, Behavior is cooperative, appropriate for age. tw2 Pain: Complains of pain in left arm, neck, left shoulder. 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 - Coronavirus screen:: The patient has NOT traveled to [place], [place], or [place] in the past 14 days. - Social history:: Smoking status: Patient reports the use of cigarette tobacco products, smokes one-half pack cigarettes per day. - Ebola Screening: : Patient denies travel to an Ebola-affected area in the 21 days before illness onset. Screenin:47 Abuse screen: Denies threats or abuse. Denies injuries from another. Nutritional mg2 screening: No deficits noted. Tuberculosis screening: No symptoms or risk factors identified. Fall Risk None identified. Assessment: 12:46 General: Appears in no apparent distress. comfortable, Behavior is calm, cooperative. mg2 Pain: Complains of pain in left ARM. Neuro: Level of Consciousness is awake, alert, obeys commands, Oriented to person, place, time, situation. Cardiovascular: Capillary refill < 3 seconds Patient's skin is warm and dry. Respiratory: Airway is patent Respiratory effort is even, unlabored, Respiratory pattern is regular, symmetrical. GI: No signs and/or symptoms were reported involving the gastrointestinal system. : No signs and/or symptoms were reported regarding the genitourinary system. EENT: No signs and/or symptoms were reported regarding the EENT system. Derm: Skin is intact, is healthy with good turgor, Skin is pink, warm \\T\\ dry. normal. Musculoskeletal: Circulation, motion, and sensation intact. Capillary refill < 3 seconds, Reports pain in left arm. 13:12 Reassessment: Patient states feeling better. mg2 Vital Signs: 11:46 BP 103 / 52; Pulse 73; Resp 17; Temp 97.4(TE); Pulse Ox 100% on R/A; Weight 54.43 kg tw2 (R); Height 5 ft. 4 in. (162.56 cm); Pain 10/10; 13:12 BP 110 / 60; Pulse 70; Resp 18; Temp 98; Pulse Ox 99% on R/A; mg2 11:46 Body Mass Index 20.60 (54.43 kg, 162.56 cm) tw2 ED Course: 11:41 Patient arrived in ED. mr 11:46 Triage completed. tw2 11:48 Arm band placed on. tw2 11:56 Nimesh Trejo NP is PHCP. pm1 11:56 Lamonte Baer MD is Attending Physician. pm1 12:13 Caleb Hannon RN is Primary Nurse. mg2 12:48 Patient has correct armband on for positive identification. mg2 12:48 No provider procedures requiring assistance completed. Patient did not have IV access mg2 during this emergency room visit. Administered Medications: 12:13 Drug: TORadol 60 mg Route: IM; Site: right gluteus; mg2 12:58 Follow up: Response: No adverse reaction mg2 12:14 Drug: Valium 5 mg Route: PO; mg2 12:58 Follow up: Response: No adverse reaction mg2 12:14 Drug: Decadron 10 mg Route: IM; Site: left gluteus; mg2 12:58 Follow up: Response: No adverse reaction mg2 12:56 Drug: Lidoderm 5 % (700 mg/patch) 1 patches Route: Topical; Site: affected area; mg2 12:58 Follow up: Response: No adverse reaction; Medication administered at discharge. mg2 Outcome: 12:53 Discharge ordered by MD. pm1 13:13 Discharged to home ambulatory, with family. mg2 13:13 Condition: stable 13:13 Discharge instructions given to patient, family, Instructed on discharge instructions, follow up and referral plans. medication usage, Demonstrated understanding of instructions, follow-up care, medications, Prescriptions given X 2. 13:13 Patient left the ED. mg2 Signatures: Nohelia Henson Patrick, NP MANDREL PULLER pm1 Renata Carranza, JOSAFAT RN tw2 Caleb Hannon RN RN mg2 Corrections: (The following items were deleted from the chart) 11:46 11:44 Presenting complaint: Patient states: my neck and my LEFT shoulder and i cant tw2 grap anything in my LEFT arm, my neck and shoulder have been hurting for a few weeks now, i have been using patches, i have degenerative joint disease tw2
--- NOTE | 2019-12-15 12:54 | EDPHYS ---
Physician Documentation [facility] Name: Veda Espinoza Age: 49 yrs Sex: Female : 1970 Arrival Date: 12/15/2019 Time: 11:41 Bed 24 Private MD: ED Physician Lamonte Baer HPI: 12/15 12:14 This 49 yrs old Female presents to ER via Ambulatory with complaints of Left pm1 Arm Pain. 12:14 The patient or guardian complains of pain. pm1 12:14 The complaints affect the left arm. Context: Chronic neck pain. Patient has seen her pm1 PCP and Dr. Joshi in the past 3 weeks for the same complaint. given prescriptions by Dr. Hernandez and then referred to neurosurgeon. Had MRI and Dr. Joshi told here that management is strictly medical, no surgical option. Onset: The symptoms/episode began/occurred 3 week(s) ago. Treatment prior to arrival includes: prescription medications. Modifying factors: The symptoms are alleviated by remaining still, the symptoms are aggravated by movement. Associated signs and symptoms: Pertinent negatives: numbness, tingling. Severity of symptoms: in the emergency department the symptoms are unchanged. 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 - Coronavirus screen:: The patient has NOT traveled to [place], [place], or [place] in the past 14 days. - Social history:: Smoking status: Patient reports the use of cigarette tobacco products, smokes one-half pack cigarettes per day. - Ebola Screening: : Patient denies travel to an Ebola-affected area in the 21 days before illness onset. ROS: 12:14 Constitutional: Negative for fever, chills, and weight loss, Cardiovascular: Negative pm1 for chest pain, palpitations, and edema. 12:14 Respiratory: Negative for shortness of breath, cough, wheezing, and pleuritic chest pain, Abdomen/GI: Negative for abdominal pain, nausea, vomiting, diarrhea, and constipation, Back: Negative for injury and pain. 12:14 Skin: Negative for injury, rash, and discoloration, Neuro: Negative for headache, weakness, numbness, tingling, and seizure. 12:14 Neck: Positive for of the left trapezius, pain. 12:14 MS/extremity: Positive for pain, Negative for paresthesias, tingling. Exam: 12:14 Constitutional: This is a well developed, well nourished patient who is awake, alert, pm1 and in no acute distress. Head/Face: Normocephalic, atraumatic. Neck: Trachea midline, no thyromegaly or masses palpated, and no cervical lymphadenopathy. Supple, full range of motion without nuchal rigidity, or vertebral point tenderness. No Meningismus. Chest/axilla: Normal chest wall appearance and motion. Nontender with no deformity. No lesions are appreciated. Cardiovascular: Regular rate and rhythm with a normal S1 and S2. No gallops, murmurs, or rubs. Normal PMI, no JVD. No pulse deficits. Respiratory: Lungs have equal breath sounds bilaterally, clear to auscultation and percussion. No rales, rhonchi or wheezes noted. No increased work of breathing, no retractions or nasal flaring. Abdomen/GI: Soft, non-tender, with normal bowel sounds. No distension or tympany. No guarding or rebound. No evidence of tenderness throughout. Skin: Warm, dry with normal turgor. Normal color with no rashes, no lesions, and no evidence of cellulitis. 12:14 Back: muscle spasm, is appreciated in the left trapezius and causes pain radiation down left arm. 12:14 Neuro: Orientation: is normal, Motor: is normal, moves all fours, strength is 5/5 in all extremities, Sensation: is normal, no obvious gross deficits, equal management lecturer strength. Vital Signs: 11:46 BP 103 / 52; Pulse 73; Resp 17; Temp 97.4(TE); Pulse Ox 100% on R/A; Weight 54.43 kg tw2 (R); Height 5 ft. 4 in. (162.56 cm); Pain 10/10; 13:12 BP 110 / 60; Pulse 70; Resp 18; Temp 98; Pulse Ox 99% on R/A; mg2 11:46 Body Mass Index 20.60 (54.43 kg, 162.56 cm) tw2 MDM: 12:01 Patient medically screened. [facility] 12:51 Data reviewed: vital signs. Data interpreted: Pulse oximetry: on room air is 100 %. pm1 Interpretation: normal. 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 12:59 ED course: [place]MP[place] without any reported prescriptions on search. pm1 13:00 ED course: Patient has seen PCP for complaint that has been ongoing for 2 months. Saw pm1 PCP and given medications. Had a MRI and saw Dr. Joshi, neurosurgeon. Told that there is no surgical intervention that can help her and to continue medications given by Dr. Hernandez her PCP. Discussed with the patient to follow up with pain management. Administered Medications: 12:13 Drug: TORadol 60 mg Route: IM; Site: right gluteus; mg2 12:58 Follow up: Response: No adverse reaction mg2 12:14 Drug: Valium 5 mg Route: PO; mg2 12:58 Follow up: Response: No adverse reaction mg2 12:14 Drug: Decadron 10 mg Route: IM; Site: left gluteus; mg2 12:58 Follow up: Response: No adverse reaction mg2 12:56 Drug: Lidoderm 5 % (700 mg/patch) 1 patches Route: Topical; Site: affected area; mg2 12:58 Follow up: Response: No adverse reaction; Medication administered at discharge. mg2 Disposition: 14:53 Co-signature as Attending Physician, Lamonte Baer MD I agree with the assessment and [facility] plan of care. Disposition: 12/15/19 12:53 Discharged to Home. Impression: Radiculopathy, cervical region. - Condition is Stable. - Discharge Instructions: Cervical Radiculopathy. - Prescriptions for Valium 2 mg Oral Tablet - take 1 tablet by ORAL route every 8 hours As needed; 10 tablet. Medrol (Magdiel) 4 mg Oral Tablets, Dose Pack - take 1 tablet by ORAL route as directed - follow package instructions; 1 packet. - Medication Reconciliation Form, Thank You Letter, Antibiotic Education, Prescription Opioid Use form. - Follow up: Emergency Department; When: As needed; Reason: Worsening of condition. Follow up: Private Physician; When: 2 - 3 days; Reason: Recheck today's complaints, Continuance of care, Re-evaluation by your physician. - Problem is new. - Symptoms have improved. Signatures: Lamonte Baer MD MD cha Marinas, Patrick, NP DISTRICT BRANCH MANAGER pm1 Renata Carranza RN RN tw2 Caleb Hannon RN RN mg2 Corrections: (The following items were deleted from the chart) 13:13 12:53 12/15/2019 12:53 Discharged to Home. Impression: Radiculopathy, cervical region. mg2 Condition is Stable. Forms are Medication Reconciliation Form, Thank You Letter, Antibiotic Education, Prescription Opioid Use. Follow up: Emergency Department; When: As needed; Reason: Worsening of condition. Follow up: Private Physician; When: 2 - 3 days; Reason: Recheck today's complaints, Continuance of care, Re-evaluation by your physician. Problem is new. Symptoms have improved. pm1
[2019-12-15] MEDS ORDERED: LIDOCAINE 4% PATCH ONE (12:56)
[2019-12-15 13:44] VITALS: BP 110/60; TEMP 98; O2SAT 99
== END 2019-12-15 13:13 | disposition home or self-care (01) ==
LOC: ER 11:36
DX: M54.12 Radiculopathy, cervical region (principal); F31.9 Bipolar disorder, unspecified; F17.210 Nicotine dependence, cigarettes, uncomplicated; Z88.1 Allergy status to other antibiotic agents; Z88.5 Allergy status to narcotic agent; Z88.8 Allergy status to other drugs, medicaments and biological substances
CPT/HCPCS: 96372; 99283; J1100

== ENCOUNTER 2019-12-29 19:09 | Emergency (ER) | payer OTHER ==
--- OUTSIDE RECORDS SUMMARY | 2019-12-29 19:10 | XMS REPORT ---
:1970 [facility] Guerrero [address] [place] [address] Care Team Providers Name Role Phone Unavailable Unavailable Unavailable Problems This patient has no known problems. Allergies, Adverse Reactions, Alerts This patient has no known allergies or adverse reactions. Medications This patient has no known medications.
[2019-12-29] MEDS ORDERED: DIAZEPAM 5 MG TABLET ONE (19:48)
[2019-12-29] MEDS ORDERED: dexAMETHasone 10 MG/ML VIAL ONE (19:48)
[2019-12-29] MEDS ORDERED: LIDOCAINE 4% PATCH ONE (19:49)
[2019-12-29] MEDS ORDERED: KETOROLAC 30 MG/ML INJ ONE (19:49)
--- NOTE | 2019-12-29 20:51 | ER ---
Nurse's Notes [facility] Name: Veda Espinoza Age: 49 yrs Sex: Female : 1970 Arrival Date: 12/29/2019 Time: 19:14 Bed 8 Private MD: Diagnosis: Radiculopathy, cervical region Presentation: 12/29 19:13 Presenting complaint: Patient states: she has DDD with a total spinal fusion and for aa1 the past several weeks she has been having pain and tingling in her L arm that radiates up her neck. Reports she was seen here about a week ago for the same issue and was referred to pain management. States she has an appt with pain management in [place] in 2 days but the pain is too much for her to wait to be seen. Transition of care: patient was not received from another setting of care. Onset of symptoms was November 2019. Risk Assessment: Do you want to hurt yourself or someone else? Patient reports no desire to harm self or others. Initial Sepsis Screen: Does the patient meet any 2 criteria? No. Patient's initial sepsis screen is negative. Does the patient have a suspected source of infection? No. Patient's initial sepsis screen is negative. Care prior to arrival: None. 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: 19:20 LMP N/A - Post-menopause aa1 Historical: - Allergies: 19:20 Augmentin; aa1 19:20 Fentanyl; "allergic to fentanyl patches"; aa1 19:20 Tylenol-Codeine; aa1 - Home Meds: 19:20 Butalbital Compound 50-325-40 mg Oral tab 1 tab every 6 hours [Active]; duloxetine 20 aa1 mg oral cpDR 1 cap 2 times per day [Active]; sertraline 50 mg oral tab 1 tab once daily [Active]; mirtazapine 15 mg Oral TbDL 1 tab once daily [Active]; Zanaflex 4 mg Oral cap every 6 hours [Active]; lamotrigine 200 mg oral tr24 1 tab once daily [Active]; - PMHx: 19:20 ADD/ADHD; Bipolar disorder; Degenerative disc disease; Anxiety; PTSD; aa1 - PSHx: 19:20 Appendectomy; Hysterectomy; Tonsillectomy; back surgeries; aa1 - Immunization history:: Flu vaccine is up to date. - Coronavirus screen:: The patient has NOT traveled to [place], [place], or [place] in the past 14 days. Proceed with normal triage process as indicated. - Social history:: Smoking status: Patient reports the use of cigarette tobacco products, smokes one-half pack cigarettes per day. - Ebola Screening: : No symptoms or risks identified at this time. Screenin:20 Abuse screen: Denies threats or abuse. Denies injuries from another. Nutritional aa1 screening: No deficits noted. Tuberculosis screening: No symptoms or risk factors identified. Fall Risk None identified. Assessment: 19:20 General: Appears in no apparent distress. comfortable, Behavior is calm, cooperative, aa1 appropriate for age. Pain: Complains of pain in left trapezius, left arm and neck Pain currently is 8 out of 10 on a pain scale. Pain began weeks ago Is chronic. Neuro: Level of Consciousness is awake, alert, obeys commands, Oriented to person, place, time, situation, Moves all extremities. Full function Gait is steady, Intact Tingling in left arm. Cardiovascular: Heart tones S1 S2 present Rhythm is regular. Respiratory: Airway is patent Respiratory effort is even, unlabored, Respiratory pattern is regular, symmetrical. GI: No signs and/or symptoms were reported involving the gastrointestinal system. : No signs and/or symptoms were reported regarding the genitourinary system. EENT: No signs and/or symptoms were reported regarding the EENT system. Derm: Skin is intact, is healthy with good turgor, Skin is pink, warm \\T\\ dry. Musculoskeletal: Circulation, motion, and sensation intact. Capillary refill < 3 seconds, Range of motion: intact in all extremities. 20:03 Reassessment: Patient appears in no apparent distress at this time. Patient and/or aa1 family updated on plan of care and expected duration. Pain level reassessed. Patient is alert, oriented x 3, equal unlabored respirations, skin warm/dry/pink. Awaiting provider reassessment. 20:36 Reassessment: Patient appears in no apparent distress at this time. Patient is alert, aa1 oriented x 3, equal unlabored respirations, skin warm/dry/pink. Discussed d/c \\T\\ f/u instructions with pt; denies questions or concerns at this time. [facility]. Patient states feeling better. Patient states symptoms have improved. Vital Signs: 19:20 BP 107 / 76; Pulse 80; Resp 18; Temp 98.3; Pulse Ox 100% on R/A; Weight 56.7 kg; Height aa1 5 ft. 4 in. (162.56 cm); Pain 8/10; 20:03 BP 109 / 70; Pulse 60; Resp 16; Pulse Ox 97% on R/A; Pain 8/10; aa1 19:20 Body Mass Index 21.46 (56.70 kg, 162.56 cm) aa1 ED Course: 19:13 Blanca Díaz, JOSAFAT is Primary Nurse. aa1 19:14 Patient arrived in ED. cf2 19:16 Nimesh Trejo NP is PHCP. pm1 19:16 Meseret Mcdonald MD is Attending Physician. pm1 19:17 Triage completed. aa1 19:20 Arm band placed on right wrist. aa1 19:20 Patient has correct armband on for positive identification. Bed in low position. Call aa1 light in reach. Pulse ox on. NIBP on. Warm blanket given. 20:36 No provider procedures requiring assistance completed. Patient did not have IV access aa1 during this emergency room visit. Administered Medications: 19:49 Drug: Valium 5 mg Route: PO; aa1 20:36 Follow up: Response: No adverse reaction; Pain is decreased aa1 19:50 Drug: Decadron 10 mg Route: IM; Site: left gluteus; aa1 20:36 Follow up: Response: No adverse reaction; Pain is decreased aa1 19:50 Drug: Lidoderm 5 % (700 mg/patch) 1 patches Route: Topical; Site: affected area; aa1 19:51 Drug: TORadol 60 mg Route: IM; Site: right gluteus; aa1 20:36 Follow up: Response: No adverse reaction; Pain is decreased aa1 Outcome: 20:11 Discharge ordered by . pm1 20:36 Discharged to home ambulatory, with significant other. aa1 20:36 Condition: good 20:36 Discharge instructions given to patient, Instructed on discharge instructions, follow up and referral plans. medication usage, Demonstrated understanding of instructions, follow-up care, medications, Prescriptions given X 3. 20:38 Patient left the ED. aa1 Signatures: Blanca Díaz RN RN aa1 Nimesh Trejo, RUBBER MILL OPERATOR RUBBER MILL OPERATOR pm1 Nga Catalan cf2
--- NOTE | 2019-12-29 20:51 | EDPHYS ---
Physician Documentation [facility] Name: Veda Espinoza Age: 49 yrs Sex: Female : 1970 Arrival Date: 12/29/2019 Time: 19:14 Bed 8 Private MD: ED Physician Meseret Mcdonald HPI: 12/29 19:32 This 49 yrs old Female presents to ER via EMS with complaints of Left Arm pm1 Pain. 19:32 The patient or guardian complains of pain. The complaints affect the left arm. Context: pm1 resulted from a chronic condition, neck pain. Onset: The symptoms/episode began/occurred 6 week(s) ago. Treatment prior to arrival includes: prescription medications, Valium and Medrol dose pack prescribed on 12/15/2019. Medications effective for pain until the medications ran out. Modifying factors: The symptoms are alleviated by remaining still, the symptoms are aggravated by movement. Associated signs and symptoms: Pertinent negatives: numbness, tingling, weakness. Severity of symptoms: in the emergency department the symptoms are unchanged. Has appointment with pain management in 2 days. Has been seen by her PCP and Dr. Joshi, neurosurgeon, for the same complaint. Had MRI with Dr. Joshi and was told that management would be medical, no surgical treatment. HADOOP ADMIN: 19:20 LMP N/A - Post-menopause aa1 Historical: - Allergies: 19:20 Augmentin; aa1 19:20 Fentanyl; "allergic to fentanyl patches"; aa1 19:20 Tylenol-Codeine; aa1 - Home Meds: 19:20 Butalbital Compound 50-325-40 mg Oral tab 1 tab every 6 hours [Active]; duloxetine 20 aa1 mg oral cpDR 1 cap 2 times per day [Active]; sertraline 50 mg oral tab 1 tab once daily [Active]; mirtazapine 15 mg Oral TbDL 1 tab once daily [Active]; Zanaflex 4 mg Oral cap every 6 hours [Active]; lamotrigine 200 mg oral tr24 1 tab once daily [Active]; - PMHx: 19:20 ADD/ADHD; Bipolar disorder; Degenerative disc disease; Anxiety; PTSD; aa1 - PSHx: 19:20 Appendectomy; Hysterectomy; Tonsillectomy; back surgeries; aa1 - Immunization history:: Flu vaccine is up to date. - Coronavirus screen:: The patient has NOT traveled to [place], [place], or [place] in the past 14 days. Proceed with normal triage process as indicated. - Social history:: Smoking status: Patient reports the use of cigarette tobacco products, smokes one-half pack cigarettes per day. - Ebola Screening: : No symptoms or risks identified at this time. ROS: 19:32 Constitutional: Negative for fever, chills, and weight loss, Eyes: Negative for injury, pm1 pain, redness, and discharge, ENT: Negative for injury, pain, and discharge, Cardiovascular: Negative for chest pain, palpitations, and edema, Respiratory: Negative for shortness of breath, cough, wheezing, and pleuritic chest pain, Abdomen/GI: Negative for abdominal pain, nausea, vomiting, diarrhea, and constipation. 19:32 Skin: Negative for injury, rash, and discoloration, Neuro: Negative for headache, weakness, numbness, tingling, and seizure. 19:32 Neck: Positive for of the left trapezius, pain. 19:32 MS/extremity: Positive for pain, of the left arm, Negative for decreased range of motion, paresthesias, tingling. Exam: 19:32 Constitutional: This is a well developed, well nourished patient who is awake, alert, pm1 and in no acute distress. Head/Face: Normocephalic, atraumatic. Chest/axilla: Normal chest wall appearance and motion. Nontender with no deformity. No lesions are appreciated. Cardiovascular: Regular rate and rhythm with a normal S1 and S2. No gallops, murmurs, or rubs. No pulse deficits. 19:32 Respiratory: Lungs have equal breath sounds bilaterally, clear to auscultation and percussion. No rales, rhonchi or wheezes noted. No increased work of breathing, no retractions or nasal flaring. Abdomen/GI: Soft, non-tender, with normal bowel sounds. No distension or tympany. No guarding or rebound. No evidence of tenderness throughout. 19:32 Skin: Warm, dry with normal turgor. Normal color with no rashes, no lesions, and no evidence of cellulitis. MS/ Extremity: Pulses equal, no cyanosis. Neurovascular intact. Full, normal range of motion. 19:32 Neck: External neck: tenderness, that is mild, of the left trapezius, C-spine: vertebral tenderness, is not appreciated, ROM/movement: is normal, is supple. 19:32 Back: muscle spasm, is appreciated in the left trapezius, and causes pain radiation down left arm with palpation. 19:32 Neuro: Orientation: is normal, Motor: moves all fours, strength is 5/5 in all extremities, Patient able to dorsiflex and plantar flex left and right foot 5/5 strength. Strength equal bilaterally. Patient able to dorsiflex and plantar flex left and right great toe 5/5 strength. Strength equal bilaterally. 20:03 Neuro: Gait: is steady, at a normal pace, without difficulty, to the restroom. pm1 Vital Signs: 19:20 BP 107 / 76; Pulse 80; Resp 18; Temp 98.3; Pulse Ox 100% on R/A; Weight 56.7 kg; Height aa1 5 ft. 4 in. (162.56 cm); Pain 8/10; 20:03 BP 109 / 70; Pulse 60; Resp 16; Pulse Ox 97% on R/A; Pain 8/10; aa1 19:20 Body Mass Index 21.46 (56.70 kg, 162.56 cm) aa1 MDM: 19:17 Patient medically screened. pm1 19:26 Data reviewed: vital signs. Data interpreted: Pulse oximetry: on room air is 100 %. pm1 Interpretation: normal. 20:07 Counseling: I had a detailed discussion with the patient and/or guardian regarding: the pm1 historical points, exam findings, and any diagnostic results supporting the discharge/admit diagnosis, the need for outpatient follow up, for definitive care, a neurosurgeon, a painter spray, to return to the emergency department if symptoms worsen or persist or if there are any questions or concerns that arise at home, Patient reports improvement with medications, therefore will discharge patient home. 20:07 ED course: No results return for patient from [facility]. pm1 Administered Medications: 19:49 Drug: Valium 5 mg Route: PO; aa1 20:36 Follow up: Response: No adverse reaction; Pain is decreased aa1 19:50 Drug: Decadron 10 mg Route: IM; Site: left gluteus; aa1 20:36 Follow up: Response: No adverse reaction; Pain is decreased aa1 19:50 Drug: Lidoderm 5 % (700 mg/patch) 1 patches Route: Topical; Site: affected area; aa1 19:51 Drug: TORadol 60 mg Route: IM; Site: right gluteus; aa1 20:36 Follow up: Response: No adverse reaction; Pain is decreased aa1 Disposition: 20:48 Co-signature as Attending Physician, Meseret Mcdonald MD. ma2 Disposition: 12/29/19 20:11 Discharged to Home. Impression: Radiculopathy, cervical region. - Condition is Stable. - Discharge Instructions: Cervical Radiculopathy. - Prescriptions for Lidoderm 5 % Topical adhesive patch,medicated - apply 1 patch by TRANSDERMAL route once daily As needed; 30 Transdermal Patch. Valium 2 mg Oral Tablet - take 1 tablet by ORAL route every 8 hours As needed; 10 tablet. Medrol (Magdiel) 4 mg Oral Tablets, Dose Pack - take 1 tablet by ORAL route as directed - follow package instructions; 1 packet. - Medication Reconciliation Form, Thank You Letter, Antibiotic Education, Prescription Opioid Use form. - Follow up: Emergency Department; When: As needed; Reason: Worsening of condition. Follow up: Private Physician; When: 2 - 3 days; Reason: Recheck today's complaints, Continuance of care, Re-evaluation by your physician. - Problem is new. - Symptoms have improved. Signatures: Blanca Díaz RN RN aa1 Nimesh Trejo, MVA REACTOR OPERATOR MVA REACTOR OPERATOR pm1 Meseret Mcdonald MD MD ma2 Corrections: (The following items were deleted from the chart) 20:38 20:11 12/29/2019 20:11 Discharged to Home. Impression: Radiculopathy, cervical region. aa1 Condition is Stable. Forms are Medication Reconciliation Form, Thank You Letter, Antibiotic Education, Prescription Opioid Use. Follow up: Emergency Department; When: As needed; Reason: Worsening of condition. Follow up: Private Physician; When: 2 - 3 days; Reason: Recheck today's complaints, Continuance of care, Re-evaluation by your physician. Problem is new. Symptoms have improved. pm1
[2019-12-31 20:34] VITALS: TEMP 98.3
[2019-12-31 20:35] VITALS: BP 109/70; O2SAT 97
== END 2019-12-29 20:38 | disposition home or self-care (01) ==
LOC: ER 19:09
DX: M54.12 Radiculopathy, cervical region (principal); F17.210 Nicotine dependence, cigarettes, uncomplicated; F31.9 Bipolar disorder, unspecified; F43.10 Post-traumatic stress disorder, unspecified; F90.9 Attention-deficit hyperactivity disorder, unspecified type; Z88.1 Allergy status to other antibiotic agents; Z88.5 Allergy status to narcotic agent; Z88.6 Allergy status to analgesic agent
CPT/HCPCS: 96372; 99284; J1100